=== PATIENT | female | born 1955 | race Caucasian/White ===

== ENCOUNTER → 2016-06-15 | Outpatient (CLI) | payer OTHER ==
--- NOTE | 2016-06-17 08:56 | MM ---
Reason for exam: screening (asymptomatic). Last mammogram was performed 1 year and 2 months ago. History: Patient is postmenopausal and is nulliparous. Took estrogen for 3 years beginning at age 51. Physical Findings: A clinical breast exam by your physician is recommended on an annual basis and results should be correlated with mammographic findings. MG Screening Mammo w CAD Bilateral CC and MLO view(s) were taken. Prior study comparison: April 15, 2015, bilateral MG screening mammo w CAD. July 07, 2013, [facility] DIGITAL LEFT BREAST MAMMOGRAM w/CAD. The breast tissue is heterogeneously dense. This may lower the sensitivity of mammography. There is chronic nodularity bilaterally. No significant changes when compared with prior studies. ASSESSMENT: Benign, BI-RAD 2 RECOMMENDATION: Routine screening mammogram of both breasts in 1 year.
== END ==
LOC: RADMAMWWP 16:22
PROVIDERS: ATTEND Family Medicine
DX: Z12.31 Encounter for screening mammogram for malignant neoplasm of breast (principal)

== ENCOUNTER → 2017-04-16 | Outpatient (CLI) | payer OTHER ==
[~2017-04-16] MED LIST: SODIUM CHLORIDE 0.9% 500 ML in EMPTY BAG 1 BAG IV PRN; ZOLEDRONIC ACID 5 MG in SODIUM CHLORIDE 0.9% 100 ML IV ONE
[2017-04-16 12:53] VITALS: BP 136/63; PULSE 68; RESP 16; TEMP 98.1
== END | disposition home or self-care (01) ==
LOC: PROCWHC3 12:35
PROVIDERS: ATTEND Physician Assistant Medical
DX: M81.0 Age-related osteoporosis without current pathological fracture (principal)
CPT/HCPCS: 96365; J3489

== ENCOUNTER 2017-06-22 10:00 | Observation (INO) | payer OTHER ==
[2017-06-22] MEDS ORDERED: NITROGLYCERIN OINT 1 INCH/GM PACKET TOPICAL STA (10:28)
[2017-06-22] MEDS ORDERED: ASPIRIN 81 MG PO STA (10:28)
--- NOTE | 2017-06-22 10:30 | ED ---
General Adult HPI - General Chief complaint: Chest Pain Stated complaint: Chest pain Time Seen by Provider: 06/22/17 10:20 Source: patient, RN notes reviewed Mode of arrival: wheelchair Limitations: no limitations - History of Present Illness Initial comments: Patient is a pleasant 61-year-old female presenting to the emergency Department with chest discomfort. Onset was prior to arrival. Patient was at rest. Discomfort felt somewhat sharp. There was radiation to the left shoulder. No associated dyspnea, nausea, or diaphoresis. Patient is near symptom-free at this time. Symptoms did improve with aspirin. No history of similar symptoms previously. - Related Data Home Medications Medication Instructions Recorded Confirmed Aspirin 81 mg PO DAILY 07/11/14 06/22/17 Calcium Carbonate/Vitamin D3 1 tab PO DAILY 03/11/15 06/22/17 [Calcium 600 + Vit D Tablet] Lutein 40 mg PO DAILY 03/11/15 06/22/17 Cholecalciferol (Vitamin D3) 2,000 unit PO DAILY 06/22/17 06/22/17 [Vitamin D3] Hydrochlorothiazide [Hydrodiuril] 25 mg PO DAILY 06/22/17 06/22/17 Ubidecarenone [Co Q-10] 100 mg PO DAILY 06/22/17 06/22/17 Vits A,C,E/Lutein/Minerals 1 tab PO DAILY 06/22/17 06/22/17 [Ocuvite with Lutein Tablet] Allergies Allergy/AdvReac Type Severity Reaction Status Date / Time hydromorphone HCl Allergy Itching Verified 06/22/17 10:46 [From Dilaudid] codeine AdvReac Nausea Verified 06/22/17 10:46 Review of Systems ROS Statement: Those systems with pertinent positive or pertinent negative responses have been documented in the HPI. ROS Other: All systems not noted in ROS Statement are negative. Constitutional: Denies: fever Eyes: Denies: eye pain ENT: Denies: ear pain Respiratory: Denies: cough, dyspnea Cardiovascular: Reports: chest pain Endocrine: Denies: fatigue Gastrointestinal: Denies: abdominal pain Genitourinary: Denies: dysuria Musculoskeletal: Denies: back pain Skin: Denies: rash Neurological: Denies: weakness Past Medical History Past Medical History: Hyperlipidemia Additional Past Medical History / Comment(s): PAST HX IDIOPATHIC NODULAR PANNICULITIS-RESOLVED NOW History of Any Multi-Drug Resistant Organisms: None Reported Additional Past Surgical History / Comment(s): SINUS SURG. COLONOSCOPY Past Anesthesia/Blood Transfusion Reactions: No Reported Reaction Past Psychological History: No Psychological Hx Reported Smoking Status: Former smoker Past Alcohol Use History: Occasional Past Drug Use History: None Reported - Past Family History Mother Family Medical History: No Reported History General Exam Limitations: no limitations General appearance: alert, in no apparent distress Head exam: Present: atraumatic Eye exam: Present: normal appearance, PERRL ENT exam: Present: normal oropharynx Neck exam: Present: normal inspection Respiratory exam: Present: normal lung sounds bilaterally. Absent: chest wall tenderness Cardiovascular Exam: Present: regular rate, normal rhythm Expanded Peripheral pulses: 2+: Radial (R), Radial (L), Dorsalis Pedis (R), Dorsalis Pedis (L) GI/Abdominal exam: Present: soft. Absent: distended, tenderness Extremities exam: Present: normal inspection. Absent: pedal edema, calf tenderness Neurological exam: Present: alert Psychiatric exam: Present: normal affect, normal mood Skin exam: Present: normal color Course Vital Signs 06/22/17 06/22/17 10:03 10:13 Temperature 98.4 F Pulse Rate 79 Pulse Rate [ 80 Apical] Respiratory 18 Rate Blood Pressure 149/85 O2 Sat by Pulse 100 Oximetry EKG Findings - EKG Comments: EKG Findings:: Normal sinus rhythm 77. NE 142. QRS 82. QT 382. QTC 432. Normal axis. Normal QRS. No acute ST change. Medical Decision Making - Medical Decision Making Patient reevaluated and updated. Dr. Fowler has been paged for admission for Dr. Lee. - Lab Data Result diagrams: 06/22/17 10:13 06/22/17 10:13 Lab Results 06/22/17 06/22/17 06/22/17 Range/Units 10:13 10:13 10:13 WBC 3.5 L (3.8-10.6) k/uL RBC 4.54 (3.80-5.40) m/uL Hgb 14.3 (11.4-16.0) gm/dL Hct 42.7 (34.0-46.0) % MCV 94.1 (80.0-100.0) fL MCH 31.5 (25.0-35.0) pg MCHC 33.5 (31.0-37.0) g/dL RDW 11.8 (11.5-15.5) % Plt Count 176 (150-450) k/uL Neutrophils % 44 % Lymphocytes % 42 % Monocytes % 7 % Eosinophils % 2 % Basophils % 1 % Neutrophils # 1.5 (1.3-7.7) k/uL Lymphocytes # 1.5 (1.0-4.8) k/uL Monocytes # 0.3 (0-1.0) k/uL Eosinophils # 0.1 (0-0.7) k/uL Basophils # 0.0 (0-0.2) k/uL PT (9.0-12.0) sec INR (<1.2) APTT (22.0-30.0) sec Sodium 141 (137-145) mmol/L Potassium 4.2 (3.5-5.1) mmol/L Chloride 102 (98-107) mmol/L Carbon Dioxide 31 H (22-30) mmol/L Anion Gap 8 mmol/L BUN 25 H (7-17) mg/dL Creatinine 0.80 (0.52-1.04) mg/dL Est GFR (MDRD) Af Amer >60 (>60 ml/min/1.73 sqM) Est GFR (MDRD) Non-Af >60 (>60 ml/min/1.73 sqM) Glucose 82 (74-99) mg/dL Calcium 10.0 (8.4-10.2) mg/dL Magnesium 1.9 (1.6-2.3) mg/dL Total Bilirubin 0.4 (0.2-1.3) mg/dL AST 41 H (14-36) U/L ALT 77 H (9-52) U/L Alkaline Phosphatase 58 (38-126) U/L Total Creatine Kinase 50 (30-135) U/L CK-MB (CK-2) 0.4 (0.0-2.4) ng/mL CK-MB (CK-2) Rel Index 0.8 Troponin I <0.012 (0.000-0.034) ng/mL Total Protein 6.9 (6.3-8.2) g/dL Albumin 4.4 (3.5-5.0) g/dL 06/22/17 Range/Units 10:13 WBC (3.8-10.6) k/uL RBC (3.80-5.40) m/uL Hgb (11.4-16.0) gm/dL Hct (34.0-46.0) % MCV (80.0-100.0) fL MCH (25.0-35.0) pg MCHC (31.0-37.0) g/dL RDW (11.5-15.5) % Plt Count (150-450) k/uL Neutrophils % % Lymphocytes % % Monocytes % % Eosinophils % % Basophils % % Neutrophils # (1.3-7.7) k/uL Lymphocytes # (1.0-4.8) k/uL Monocytes # (0-1.0) k/uL Eosinophils # (0-0.7) k/uL Basophils # (0-0.2) k/uL PT 9.9 (9.0-12.0) sec INR 1.0 (<1.2) APTT 27.7 (22.0-30.0) sec Sodium (137-145) mmol/L Potassium (3.5-5.1) mmol/L Chloride (98-107) mmol/L Carbon Dioxide (22-30) mmol/L Anion Gap mmol/L BUN (7-17) mg/dL Creatinine (0.52-1.04) mg/dL Est GFR (MDRD) Af Amer (>60 ml/min/1.73 sqM) Est GFR (MDRD) Non-Af (>60 ml/min/1.73 sqM) Glucose (74-99) mg/dL Calcium (8.4-10.2) mg/dL Magnesium (1.6-2.3) mg/dL Total Bilirubin (0.2-1.3) mg/dL AST (14-36) U/L ALT (9-52) U/L Alkaline Phosphatase (38-126) U/L Total Creatine Kinase (30-135) U/L CK-MB (CK-2) (0.0-2.4) ng/mL CK-MB (CK-2) Rel Index Troponin I (0.000-0.034) ng/mL Total Protein (6.3-8.2) g/dL Albumin (3.5-5.0) g/dL - Radiology Data Interpreted by me: Chest x-ray shows no acute process Disposition Clinical Impression: Chest pain Disposition: ADMITTED IP TO THIS [facility] Referrals: Lenore Lee DO [Primary Care Provider] - 1-2 days Decision Time: 12:04
[2017-06-22 10:54] LABS: Basophils % (A) 1 %; Eosinophils # (A) 0.1 k/uL (0-0.7); Eosinophils % (A) 2 %; HCT 42.7 % (34.0-46.0); HGB 14.3 gm/dL (11.4-16.0); Lymphocytes # (A) 1.5 k/uL (1.0-4.8); Lymphocytes % (A) 42 %; MCH 31.5 pg (25.0-35.0); MCHC 33.5 g/dL (31.0-37.0); MCV 94.1 fL (80.0-100.0); Mean Platelet Volume 7.1; Monocytes # (A) 0.3 k/uL (0-1.0); Monocytes % (A) 7 %; Neutrophils # (A) 1.5 k/uL (1.3-7.7); Neutrophils % (A) 44 %; Platelet Count 176 k/uL (150-450); RBC 4.54 m/uL (3.80-5.40); RDW 11.8 % (11.5-15.5); WBC 3.5 k/uL (3.8-10.6)
[2017-06-22 11:07] LABS: Partial Thromboplastin Time 27.7 sec (22.0-30.0); Prothrombin Time 9.9 sec (9.0-12.0)
[2017-06-22 11:09] LABS: ALT 77 U/L (9-52); AST 41 U/L (14-36); Albumin 4.4 g/dL (3.5-5.0); Alkaline Phosphatase 58 U/L (38-126); Anion Gap 8 mmol/L; Blood Urea Nitrogen 25 mg/dL (7-17); Carbon Dioxide 31 mmol/L (22-30); Chloride 102 mmol/L (98-107); Glucose 82 mg/dL (74-99); Magnesium 1.9 mg/dL (1.6-2.3); Potassium 4.2 mmol/L (3.5-5.1); Sodium 141 mmol/L (137-145); Total Bilirubin 0.4 mg/dL (0.2-1.3); Total Protein 6.9 g/dL (6.3-8.2)
[2017-06-22 11:24] LABS: Creatine Kinase 50 U/L (30-135)
[2017-06-22 11:37] LABS: Creatine Kinase MB 0.4 ng/mL (0.0-2.4); Troponin I <0.012 ng/mL (0.000-0.034)
[2017-06-22] MEDS ORDERED: NITROGLYCERIN SL TABS 0.4 MG TAB SUBLINGUAL PRN (12:04)
--- NOTE | 2017-06-22 12:09 | XR ---
EXAMINATION TYPE: XR chest 2V DATE OF EXAM: 06/22/2017 COMPARISON: 03/11/2015 TECHNIQUE: PA and lateral views submitted. HISTORY: Chest pain FINDINGS: The lungs are clear and there is no pneumothorax, pleural effusion, or focal pneumonia. Patient sli ghtly rotated and there is arthropathy of the shoulders. No overt failure. Hypertrophic and degenerat yue change of the spine. IMPRESSION: 1. No acute process.
--- NOTE | 2017-06-22 14:32 | P.HPIM ---
History of Present Illness H&P Date: 06/22/17 Chief Complaint: Chest pain Mrs. Espino is a 61-year-old female, patient of [facility]. She has a known past medical history of hyperlipidemia, hypertension, osteoporosis and generalized anxiety disorder. And a prior history of smoking. Patient reports that she was sitting at her desk at work around 9:45 this morning she started having some left sided chest pain radiating into the left shoulder and into the back of the shoulder. Patient got up from her chair walked around and she also took an aspirin with no relief of her symptoms. Patient's symptoms lasted for about 45 minutes. She came into the emergency room for further evaluation and treatment. Last stress test was about 6 years ago. Patient reports that it was normal. She had EKG showing a normal sinus rhythm chest x- ray that was negative. First troponin was negative. Cardiology consulted. Patient was also found have elevated LFTs ALT of 77 AST of 41. She does take simvastatin at home. As well as Wednesday at the [employer] she did drink 6 beers. Simvastatin will be discontinued. A fasting lipid panel has been ordered. Patient denies any fever or chills or sweats. Denies any cough. Denies any nausea or vomiting. Denies any urinary symptoms. Denies any shortness of breath. Patient reports that she is chronically had loose stools since May. They are not watery. She did have some blood initially. And workup is being completed outpatient she is scheduled for colonoscopy on June 24. Patient also reports that she and her PCP had been weaning her off of the Effexor starting in January. And completely stopped taking the Effexor the beginning of May. She does report when she was in the hospital about 6 years ago at that time she had also been off of the Effexor and had chest pain like symptoms. Patient does have a family history of a father that heart attack age 50 Past Medical History Past Medical History: Eye Disorder, Hyperlipidemia, Hypertension Additional Past Medical History / Comment(s): PAST HX IDIOPATHIC NODULAR PANNICULITIS-RESOLVED NOW, pt takes hydrochlorithiazide for slight elevated blood pressure at times, beginning of bilateral macular degeneration, beginning of cataract L eye, osteoporosis with yearly reclast infusions. History of Any Multi-Drug Resistant Organisms: None Reported Additional Past Surgical History / Comment(s): SINUS SURG,. COLONOSCOPY Past Anesthesia/Blood Transfusion Reactions: No Reported Reaction Smoking Status: Former smoker - Past Family History Mother Family Medical History: No Reported History Additional Family Medical History / Comment(s): Mother had cardiac disease and arrhythmia. She lived to be 85yrs old. Father Additional Family Medical History / Comment(s): Father had cardiac disease. Medications and Allergies Home Medications Medication Instructions Recorded Confirmed Type Aspirin 81 mg PO DAILY 07/11/14 06/22/17 History Calcium Carbonate/Vitamin D3 1 tab PO DAILY 03/11/15 06/22/17 History [Calcium 600 + Vit D Tablet] Lutein 40 mg PO DAILY 03/11/15 06/22/17 History Cholecalciferol (Vitamin D3) 2,000 unit PO DAILY 06/22/17 06/22/17 History [Vitamin D3] Hydrochlorothiazide [Hydrodiuril] 25 mg PO DAILY 06/22/17 06/22/17 History Ubidecarenone [Co Q-10] 100 mg PO DAILY 06/22/17 06/22/17 History Vits A,C,E/Lutein/Minerals 1 tab PO DAILY 06/22/17 06/22/17 History [Ocuvite with Lutein Tablet] Allergies Allergy/AdvReac Type Severity Reaction Status Date / Time hydromorphone HCl Allergy Itching Verified 06/22/17 10:46 [From Dilaudid] codeine AdvReac Nausea Verified 06/22/17 10:46 Physical Exam Vitals: Vital Signs Temp Pulse Pulse Pulse Resp BP BP 06/22/17 12:59 80 72 18 06/22/17 12:36 98.0 F 72 18 146/67 06/22/17 12:19 98.0 F 65 18 125/75 06/22/17 12:07 69 19 125/78 06/22/17 10:13 80 06/22/17 10:03 98.4 F 79 18 149/85 Pulse Ox 06/22/17 12:59 06/22/17 12:36 98 06/22/17 12:19 97 06/22/17 12:07 97 06/22/17 10:13 06/22/17 10:03 100 Intake and Output 06/21/17 06/22/17 06/22/17 22:59 06:59 14:59 Other: Voiding Method Toilet Weight 65.5 kg Patient Weight 06/23/17 06:59 Weight 65.5 kg Results CBC & Chem 7: 06/22/17 10:13 06/22/17 10:13 Labs: Abnormal Lab Results - Last 24 Hours (Table) 06/22/17 06/22/17 Range/Units 10:13 10:13 WBC 3.5 L (3.8-10.6) k/uL Carbon Dioxide 31 H (22-30) mmol/L BUN 25 H (7-17) mg/dL AST 41 H (14-36) U/L ALT 77 H (9-52) U/L Thrombosis Risk Factor Assmnt - Choose All That Apply Any of the Below Risk Factors Present?: Yes Each Factor Represents 1 point: Obesity (BMI >25) Other Risk Factors: Yes Each Risk Factor Represents 2 Points: Age 61-74 years Other congenital or acquired thrombophilia - If yes, enter type in comment: No Thrombosis Risk Factor Assessment Total Risk Factor Score: 3 Thrombosis Risk Factor Assessment Level: Moderate Risk Assessment and Plan Assessment: 1. Chest pain: Cardiac workup in progress. EKG showed normal sinus rhythm. First troponin is negative. Cardiology consulted. Check fasting lipid panel. Continue aspirin 2. Elevated LFTs: Possibly medication related as well as patient did drink about 6 beers on Wednesday. She does not drink alcohol regularly. Statin will be discontinued. Repeat LFTs in a.m. Denies any abdominal pain. 3. Hyperlipidemia 4. Essential hypertension 5. Generalized anxiety disorder: Was recently tapered off of the Effexor in May DVT prophylaxis subcu heparin Time with Patient: Greater than 30 (Greater than 50% of the total time spent in counseling and coordination of care.I performed an examination of the patient and discussed their management with the physician Parts Room Associate. I have reviewed the Physician Parts Room Associate's notes and agree with the documented findings and plan of care)
--- NOTE | 2017-06-22 14:50 | P.CRDCN ---
History of Present Illness Consult date: 06/22/17 Consult reason: chest pain History of present illness: Mrs. Espino is a pleasant 61-year-old female past medical history significant for hypertension, dyslipidemia, anxiety and former tobacco use. 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 She states today while at work she was sitting at her desk doing some computer work when she started getting a sharp pain in the anterior chest wall up near her shoulder. The pain radiated into the left neck and shoulder. She also felt a heavy sensation down her left arm. She was mildly light-headed as well. She denies associated shortness of breath, palpitations, nausea, vomiting or diaphoresis. These symptoms lasted for approximately 45 minutes and seemed to resolve on their own. Nothing made the pain worse or better that she can recall. She did get up and walk to the bathroom initially thinking it was a gas sensation. The pain stayed the same with walking. She did chew aspirin at work with no immediate relief so decided to present to ED. EKG on arrival revealed sinus mechanism with no acute ST or T-wave abnormalities. Chest xray is negative for an acute cardiopulmonary process. Laboratory data reviewed, hgb 14.3, plt 176, potassium 4.2, magnesium 1.9, BUN/ Cr 25/0.8, cardiac enzymes negative x1. AST and ALT mildly elevated. Current cardiac medications include hydrochlorothiazide 25 mg daily and aspirin 81 mg daily. She also takes simvastatin but is unsure of the dose. Her will bring in her bottle for us to update. Extensive family history with both mother and father having early onset cardiac disease. Most recent echocardiogram 02/2015 reveals preserved LV function with EF 55-60% with mild TR. Most recent stress echocardiogram 02/2015 reveals no evidence of stress induced ischemia without achieving target heart rate. She has never undergone a cardiac catheterization. Review of Systems At the time of my exam: CONSTITUTIONAL: Denies fever. Denies chills. EYES: Denies blurred vision. Denies vision changes. Denies eye pain. EARS, NOSE, MOUTH & THROAT: Denies headache. Denies sore throat. Denies ear pain. CARDIOVASCULAR: Denies chest pain. Denies shortness of breath. Denies orthopnea. Denies PND. Denies palpitations. RESPIRATORY: Denies cough. GASTROINTESTINAL: Denies abdominal pain. Denies diarrhea. Denies constipation. Denies nausea. Denies vomiting. MUSCULOSKELETAL: Denies myalgias. INTEGUMENTARY: Denies pruitis. Denies rash. NEUROLOGIC: Denies numbness. Denies tingling. Denies weakness. PSYCHIATRIC: Denies anxiety. Denies depression. ENDOCRINE: Denies fatigue. Denies weight change. Denies polydipsia. Denies polyurina. GENITOURINARY: Denies burning, hematuria or urgency with micturation. HEMATOLOGIC: Denies history of anemia. Denies bleeding. Past Medical History Past Medical History: Eye Disorder, Hyperlipidemia, Hypertension Additional Past Medical History / Comment(s): PAST HX IDIOPATHIC NODULAR PANNICULITIS-RESOLVED NOW, pt takes hydrochlorithiazide for slight elevated blood pressure at times, beginning of bilateral macular degeneration, beginning of cataract L eye, osteoporosis with yearly reclast infusions. History of Any Multi-Drug Resistant Organisms: None Reported Additional Past Surgical History / Comment(s): SINUS SURG,. COLONOSCOPY Past Anesthesia/Blood Transfusion Reactions: No Reported Reaction Smoking Status: Former smoker - Past Family History Mother Family Medical History: No Reported History Additional Family Medical History / Comment(s): Mother had cardiac disease and arrhythmia. She lived to be 85yrs old. Father Additional Family Medical History / Comment(s): Father had cardiac disease. Medications and Allergies Home Medications Medication Instructions Recorded Confirmed Type Aspirin 81 mg PO DAILY 07/11/14 06/22/17 History Calcium Carbonate/Vitamin D3 1 tab PO DAILY 03/11/15 06/22/17 History [Calcium 600 + Vit D Tablet] Lutein 40 mg PO DAILY 03/11/15 06/22/17 History Cholecalciferol (Vitamin D3) 2,000 unit PO DAILY 06/22/17 06/22/17 History [Vitamin D3] Hydrochlorothiazide [Hydrodiuril] 25 mg PO DAILY 06/22/17 06/22/17 History Ubidecarenone [Co Q-10] 100 mg PO DAILY 06/22/17 06/22/17 History Vits A,C,E/Lutein/Minerals 1 tab PO DAILY 06/22/17 06/22/17 History [Ocuvite with Lutein Tablet] Allergies Allergy/AdvReac Type Severity Reaction Status Date / Time hydromorphone HCl Allergy Itching Verified 06/22/17 10:46 [From Dilaudid] codeine AdvReac Nausea Verified 06/22/17 10:46 Physical Exam Vitals: Vital Signs Temp Pulse Pulse Pulse Resp BP BP 06/22/17 12:59 80 72 18 06/22/17 12:36 98.0 F 72 18 146/67 06/22/17 12:19 98.0 F 65 18 125/75 06/22/17 12:07 69 19 125/78 06/22/17 10:13 80 06/22/17 10:03 98.4 F 79 18 149/85 Pulse Ox 06/22/17 12:59 06/22/17 12:36 98 06/22/17 12:19 97 06/22/17 12:07 97 06/22/17 10:13 06/22/17 10:03 100 Intake and Output 06/21/17 06/22/17 06/22/17 22:59 06:59 14:59 Other: Voiding Method Toilet Weight 65.5 kg Patient Weight 06/23/17 06:59 Weight 65.5 kg Blood pressure 146/67 heart rate 72 afebrile GENERAL: This is a 61-year-old female in no apparent distress at the time of my examination. HEENT: Head is atraumatic, normocephalic. Pupils are equal, round. Sclerae anicteric. Conjunctivae are clear. Mucous membranes of the mouth are moist. Neck is supple. There is no jugular venous distention. No carotid bruit is heard. LUNGS: Clear to auscultation no wheezes, rales or rhonchi. No chest wall tenderness is noted on palpation or with deep breathing. HEART: Regular rate and rhythm without murmurs, rubs or gallops. S1 and S2 heard. ABDOMEN: Soft, nontender. Bowel sounds are heard. No organomegaly noted. EXTREMITIES: No evidence of peripheral edema and no calf tenderness noted. VASCULAR: Radial and dorsalis pedis pulses palpated, no evidence of clubbing. NEUROLOGIC: Patient is awake, alert and oriented x3. Results 06/22/17 10:13 06/22/17 10:13 Cardiac Enzymes 06/22/17 06/22/17 Range/Units 10:13 10:13 AST 41 H (14-36) U/L CK-MB (CK-2) 0.4 (0.0-2.4) ng/mL Troponin I <0.012 (0.000-0.034) ng/mL Coagulation 06/22/17 Range/Units 10:13 PT 9.9 (9.0-12.0) sec APTT 27.7 (22.0-30.0) sec CBC 06/22/17 Range/Units 10:13 WBC 3.5 L (3.8-10.6) k/uL RBC 4.54 (3.80-5.40) m/uL Hgb 14.3 (11.4-16.0) gm/dL Hct 42.7 (34.0-46.0) % Plt Count 176 (150-450) k/uL Comprehensive Metabolic Panel 06/22/17 Range/Units 10:13 Sodium 141 (137-145) mmol/L Potassium 4.2 (3.5-5.1) mmol/L Chloride 102 (98-107) mmol/L Carbon Dioxide 31 H (22-30) mmol/L BUN 25 H (7-17) mg/dL Creatinine 0.80 (0.52-1.04) mg/dL Glucose 82 (74-99) mg/dL Calcium 10.0 (8.4-10.2) mg/dL AST 41 H (14-36) U/L ALT 77 H (9-52) U/L Alkaline Phosphatase 58 (38-126) U/L Total Protein 6.9 (6.3-8.2) g/dL Albumin 4.4 (3.5-5.0) g/dL Current Medications Generic Name Dose Route Start Last Admin Trade Name [email or web address] PRN Reason Stop Dose Admin Aspirin 325 mg 06/23/17 09:00 Aspirin PO DAILY [facility] Calcium Carbonate 1 each 06/23/17 09:00 Oscal 500+D PO DAILY [facility] Cholecalciferol 2,000 unit 06/23/17 09:00 Vitamin D3 PO DAILY [facility] Hydrochlorothiazide 25 mg 06/23/17 09:00 Hydrodiuril PO DAILY [facility] Multivitamins/Minerals 1 each 06/23/17 09:00 Ivite PO DAILY [facility] Nitroglycerin 1 inch 06/22/17 18:00 Nitro-Bid Oint TOPICAL Q6HR [facility] Nitroglycerin 0.4 mg 06/22/17 12:04 Nitrostat SUBLINGUAL Q5M PRN Chest Pain Lutein 40mg 40 mg 06/23/17 09:00 PO DAILY [facility] Non-Formulary Medication 100 mg 06/23/17 09:00 Ubidecarenone [Co Q-10] PO DAILY [facility] Intake and Output 06/21/17 06/22/17 06/22/17 22:59 06:59 14:59 Other: Voiding Method Toilet Weight 65.5 kg Patient Weight 06/23/17 06:59 Weight 65.5 kg 06/22/17 10:13 06/22/17 10:13 Assessment and Plan Assessment: ASSESSMENT 1. Chest pain, atypical with associated dizziness and radiation to neck and arm. Negative cardiac enzymes x1 with no EKG evidence of ischemia 2. Hypertension 3. Dyslipidemia 4. Family history of cardiac disease with both parents 5. Elevated liver function tests. PLAN Continue to obtain serial cardiac enzymes and repeat EKG in the morning. Obtain 2D echocardiogram and doppler study to assess cardiac structure and function. Resume aspirin and hydrochlorothiazide. Hold simvastatin for now, LFT's recheck in am per primary. NPO after midnight for possible stress test in the morning if cardiac enzymes are negative. Thank you kindly for this consultation, further recommendations will be based upon clinical course. Nurse Practitioner note has been reviewed, I agree with a documented findings and plan of care. Patient was seen and examined.
[2017-06-22 16:34] LABS: Creatine Kinase 46 U/L (30-135)
[2017-06-22 16:47] LABS: Creatine Kinase MB 0.3 ng/mL (0.0-2.4); Troponin I <0.012 ng/mL (0.000-0.034)
[2017-06-22] MEDS ORDERED: NITROGLYCERIN OINT 1 INCH/GM PACKET TOPICAL SCH (18:00)
[2017-06-22] MEDS: HEPARIN SODIUM,PORCINE 5,000 UNIT/ML 1 ML VIAL SQ SCH (22:07)
[2017-06-22 22:37] LABS: Creatine Kinase 44 U/L (30-135)
[2017-06-22 22:50] LABS: Creatine Kinase MB 0.3 ng/mL (0.0-2.4); Troponin I <0.012 ng/mL (0.000-0.034)
[2017-06-23 06:41] VITALS: RESP 18
[2017-06-23 07:51] LABS: ALT 68 U/L (9-52); AST 33 U/L (14-36); Alkaline Phosphatase 54 U/L (38-126); Anion Gap 7 mmol/L; Blood Urea Nitrogen 24 mg/dL (7-17); Calcium 9.4 mg/dL (8.4-10.2); Carbon Dioxide 30 mmol/L (22-30); Chloride 105 mmol/L (98-107); Cholesterol 167 mg/dL (<200); Glucose 104 mg/dL (74-99); HDL Cholesterol 60 mg/dL (40-60); LDL Cholesterol,Calculated 69 mg/dL (0-99); Potassium 4.4 mmol/L (3.5-5.1); Sodium 142 mmol/L (137-145); Total Bilirubin 0.4 mg/dL (0.2-1.3); Total Protein 6.4 g/dL (6.3-8.2); Triglycerides 190 mg/dL (<150)
[2017-06-23 08:08] LABS: Basophils % (A) 1 %; Eosinophils # (A) 0.1 k/uL (0-0.7); Eosinophils % (A) 4 %; HCT 41.6 % (34.0-46.0); Lymphocytes # (A) 1.3 k/uL (1.0-4.8); Lymphocytes % (A) 47 %; MCH 31.7 pg (25.0-35.0); MCHC 33.6 g/dL (31.0-37.0); MCV 94.4 fL (80.0-100.0); Mean Platelet Volume 7.6; Monocytes # (A) 0.2 k/uL (0-1.0); Monocytes % (A) 6 %; Neutrophils # (A) 1.1 k/uL (1.3-7.7); Neutrophils % (A) 38 %; Platelet Count 155 k/uL (150-450); RDW 11.8 % (11.5-15.5); WBC 2.8 k/uL (3.8-10.6)
[2017-06-23] MEDS ORDERED: ASPIRIN 325 MG TAB PO SCH (09:00)
[2017-06-23] MEDS ORDERED: HYDROCHLOROTHIAZIDE 25 MG TAB PO SCH (09:00)
[2017-06-23] MEDS ORDERED: LUTEIN 40 MG PO SCH (09:00)
[2017-06-23] MEDS ORDERED: VIT A,C & E-LUTEIN-MINERALS 1 EACH TAB PO SCH (09:00)
[2017-06-23] MEDS ORDERED: ASPIRIN 81 MG PO SCH (09:00)
[2017-06-23] MEDS ORDERED: CO Q-10 100MG PO SCH (09:00)
[2017-06-23] MEDS ORDERED: CHOLECALCIFEROL 1,000 UNIT TAB PO SCH (09:00)
[2017-06-23] MEDS ORDERED: CALCIUM CARB-VIT D 500MG-200UN 1 EACH TAB PO SCH (09:00)
[2017-06-23] MEDS: HEPARIN SODIUM,PORCINE 5,000 UNIT/ML 1 ML VIAL SQ SCH (12:27)
--- NOTE | 2017-06-23 13:04 | P.PN ---
Subjective Progress Note Date: 06/23/17 Mrs. Espino is seen and examined this morning resting comfortably in bed. She has had no further symptoms suggestive of angina. She denies chest pain, shortness of breath, dizziness, palpitations, diaphoresis, nausea or vomiting. Telemetry tracings have been unremarkable. Cardiac enzymes are negative x3. She is stable to proceed with stress echocardiogram as ordered. Objective - Vital Signs Vital signs: Vital Signs Temp 97.8 F 06/23/17 11:55 Pulse 79 06/23/17 11:55 Resp 18 06/23/17 11:55 BP 112/56 06/23/17 11:55 Pulse Ox 96 06/23/17 11:55 Intake & Output 06/22/17 06/23/17 06/23/17 18:59 06:59 18:59 Intake Total 720 Balance 720 Weight 65.5 kg 65.5 kg 65.317 kg Intake: Oral 720 Other: Voiding Method Toilet Toilet Toilet # Voids 1 - Exam Blood pressure 113/61 heart rate 67 afebrile GENERAL: Well-appearing, well-nourished and in no acute distress. NECK: Supple without JVD or thyromegaly. LUNGS: Breath sounds clear to auscultation bilaterally. Respiration equal and unlabored. No wheezes, rales or rhonchi. HEART: Regular rate and rhythm without murmurs, rubs or gallops. S1 and S2 heard. EXTREMITIES: Normal range of motion, no edema. No clubbing or cyanosis. Peripheral pulses intact and strong. - Labs CBC & Chem 7: 06/23/17 06:59 06/23/17 06:59 Labs: Abnormal Lab Results - Last 24 Hours (Table) 06/23/17 06/23/17 Range/Units 06:59 06:59 WBC 2.8 L (3.8-10.6) k/uL Neutrophils # 1.1 L (1.3-7.7) k/uL BUN 24 H (7-17) mg/dL Glucose 104 H (74-99) mg/dL ALT 68 H (9-52) U/L Triglycerides 190 H (<150) mg/dL Assessment and Plan Assessment: ASSESSMENT 1. Chest pain, atypical with associated dizziness and radiation to neck and arm. Negative cardiac enzymes x3 with no EKG evidence of ischemia 2. Hypertension 3. Dyslipidemia 4. Family history of cardiac disease with both parents 5. Elevated liver function tests. PLAN Proceed with stress echocardiogram to evaluate for stress induced cardiac ishcemia. If this is normal she is stable from cardiac perspective. Follow up with Dr. Mishra in 2-3 weeks. Nurse Practitioner note has been reviewed, I agree with a documented findings and plan of care. Patient was seen and examined.
--- NOTE | 2017-06-23 13:19 | ECHOF ---
Referral Reason:chest pain MEASUREMENTS -------- HEIGHT: 152.4 cm WEIGHT: 65.3 kg BP: 146/67 RVIDd: 3.4 cm (< 3.3) IVSd: 1.0 cm (0.6 - 1.1) LVIDd: 4.8 cm (3.9 - 5.3) LVPWd: 1.3 cm (0.6 - 1.1) IVSs: 1.3 cm LVIDs: 2.6 cm LVPWs: 1.3 cm LAESV Index (A-L): 21.04 ml/m Ao Diam: 2.7 cm (2.0 - 3.7) AV Cusp: 1.8 cm (1.5 - 2.6) LA Diam: 3.6 cm (2.7 - 3.8) MV E Dejon: 0.54 m/s MV DecT: 160 ms MV A Dejon: 0.64 m/s MV E/A Ratio: 0.83 RAP: 5.00 mmHg RVSP: 22.86 mmHg MV EF SLOPE: 68.48 mm/s (70 - 150) MV EXCURSION: 1.27 cm (> 18.000) FINDINGS -------- Sinus rhythm. This was a technically adequate study. The left ventricular size is normal. There is borderline concentric left ventricular hypertrophy. Overall left ventricular systolic function is normal with, an EF between 55 - 60 %. The right ventricle is normal in size and function. Normal LA size by volume 22+/-6 ml/m2. The right atrium is normal in size. The aortic valve is trileaflet and appears structurally normal. There is mild aortic regurgitation. The mitral valve is normal. Mild mitral regurgitation is present. Trace tricuspid regurgitation present. Right ventricular systolic pressure is normal at < 35 mmHg. There is no evidence of pulmonary hypertension. There is no pulmonic regurgitation present. The aortic root is borderline dilated. Normal inferior vena cava with normal inspiratory collapse consistent with estimated right atrial pre ssure of 5 mmHg. There is no pericardial effusion. CONCLUSIONS -------- 1. Sinus rhythm. 2. This was a technically adequate study. 3. The left ventricular size is normal. 4. There is borderline concentric left ventricular hypertrophy. 5. Overall left ventricular systolic function is normal with, an EF between 55 - 60 %. 6. Normal LA size by volume 22+/-6 ml/m2. 7. The aortic valve is trileaflet and appears structurally normal. 8. There is mild aortic regurgitation. 9. Mild mitral regurgitation is present. 10. Trace tricuspid regurgitation present. 11. Right ventricular systolic pressure is normal at < 35 mmHg. 12. There is no pulmonic regurgitation present. 13. The aortic root is borderline dilated. 14. There is no pericardial effusion. SHOE LINING FITTER: Castillo Fields RDCS
--- NOTE | 2017-06-23 14:12 | ECHOS ---
STRESS ECHOCARDIOGRAM INDICATIONS: Chest pain. BASELINE HEART RATE: 69 BASELINE BLOOD PRESSURE: 88/61 MAXIMUM HEART RATE: 140 MAXIMUM BLOOD PRESSURE: 122/60 85% MPHR: 134 100% MPHR: 158 METS: 12.1 MAXIMUM STAGE REACHED: III TOTAL EXERCISE TIME: 11:01 CLINICAL INFORMATION: Baseline rhythm is sinus mechanism, rate of 69, normal axis, intervals, normal electrocardiogram. Baseline blood pressure 88/61 mmHg. Patient exercised according to Sincere protocol for 11 minute 1 second reaching a peak heart rate of 140 beats per minute, which is equal to 88% maximum predicted heart cut. Peak blood pressure 122/60 mmHg. Stress was terminated due to fatigue. There was no chest pains. Electrocardiograph monitoring revealed no evidence of diagnostic ischemic ST deviation. FINDING: Baseline echocardiogram revealed normal wall thickening and motion. At peak exercise, there was normal wall motion and augmentation with no hypokinesis or dyskinesis. CONCLUSION: 1. Good exercise tolerance with normal stress electrocardiogram. 2. Normal stress echocardiogram with no evidence of stress-induced ischemia. MMODL / IJN: [id number] /
[2017-06-23 16:13] VITALS: BP 109/67; PULSE 75; TEMP 98
--- NOTE | 2017-06-23 17:08 | P.DS ---
Providers Date of admission: 06/22/17 12:04 Expected date of discharge: 06/23/17 Attending physician: Marlon Fowler Consults: 06/22/17 12:04 Consult Physician Urgent Consulting Provider: Jt Iyer Consult Reason/Comments: cp Do you want consulting provider notified?: Yes Primary care physician: [facility] Course: Diagnoses on discharge: 1. Chest pain: Cardiac workup including stress echo negative, patient evaluated by cardiology and cleared for discharge 2. Elevated LFTs: Possibly medication related as well as patient did drink about 6 beers on Wednesday. She does not drink alcohol regularly. Statin will be discontinued. Repeat LFTs in a.m. Denies any abdominal pain. 3. Hyperlipidemia 4. Essential hypertension 5. Generalized anxiety disorder: Was recently tapered off of the Effexor in May Hospital course: Mrs. Espino is a 61-year-old female, patient of [facility]. She has a known past medical history of hyperlipidemia, hypertension, osteoporosis and generalized anxiety disorder. And a prior history of smoking. Patient reports that she was sitting at her desk at work around 9:45 this morning she started having some left sided chest pain radiating into the left shoulder and into the back of the shoulder. Patient got up from her chair walked around and she also took an aspirin with no relief of her symptoms. Patient's symptoms lasted for about 45 minutes. She came into the emergency room for further evaluation and treatment. Last stress test was about 6 years ago. Patient reports that it was normal. She had EKG showing a normal sinus rhythm chest x- ray that was negative. First troponin was negative. Cardiology consulted. Patient was also found have elevated LFTs ALT of 77 AST of 41. She does take simvastatin at home. As well as Wednesday at the [email or web address] she did drink 6 beers. Simvastatin will be discontinued. A fasting lipid panel has been ordered. Patient denies any fever or chills or sweats. Denies any cough. Denies any nausea or vomiting. Denies any urinary symptoms. Denies any shortness of breath. Patient reports that she is chronically had loose stools since May. They are not watery. She did have some blood initially. And workup is being completed outpatient she is scheduled for colonoscopy on June 24. Patient also reports that she and her PCP had been weaning her off of the Effexor starting in January. And completely stopped taking the Effexor the beginning of May. She does report when she was in the hospital about 6 years ago at that time she had also been off of the Effexor and had chest pain like symptoms. Patient does have a family history of a father that heart attack age 50 Plan - Discharge Summary Discharge Rx Participant: No New Discharge Prescriptions: Continue Aspirin 81 mg PO DAILY Lutein 40 mg PO DAILY Calcium Carbonate/Vitamin D3 [Calcium 600-Vit D3 400 Tablet] 1 tab PO DAILY Cholecalciferol (Vitamin D3) [Vitamin D3] 2,000 unit PO DAILY Vits A,C,E/Lutein/Minerals [Ocuvite with Lutein Tablet] 1 tab PO DAILY Hydrochlorothiazide [Hydrodiuril] 25 mg PO DAILY Ubidecarenone [Co Q-10] 100 mg PO DAILY Discharge Medication List Aspirin 81 mg PO DAILY 07/11/14 [History] Calcium Carbonate/Vitamin D3 [Calcium 600-Vit D3 400 Tablet] 1 tab PO DAILY [History] Lutein 40 mg PO DAILY 03/11/15 [History] Cholecalciferol (Vitamin D3) [Vitamin D3] 2,000 unit PO DAILY 06/22/17 [History] Hydrochlorothiazide [Hydrodiuril] 25 mg PO DAILY 06/22/17 [History] Ubidecarenone [Co Q-10] 100 mg PO DAILY 06/22/17 [History] Vits A,C,E/Lutein/Minerals [Ocuvite with Lutein Tablet] 1 tab PO DAILY 06/22/17 [History] Follow up Appointment(s)/Referral(s): Lenore Lee DO [Primary Care Provider] - 1-2 days
== END 2017-06-23 17:51 | disposition home or self-care (01) ==
LOC: EC 10:00 → 3OBS 12:04
PROVIDERS: ADMIT Internal Medicine; ATTEND Internal Medicine
DX: R07.89 Other chest pain (principal); R94.5 Abnormal results of liver function studies; I10 Essential (primary) hypertension; E78.5 Hyperlipidemia, unspecified; Z82.49 Family history of ischemic heart disease and other diseases of the circulatory system; R42 Dizziness and giddiness; M81.0 Age-related osteoporosis without current pathological fracture; F41.1 Generalized anxiety disorder; H26.9 Unspecified cataract; H35.30 Unspecified macular degeneration; E66.9 Obesity, unspecified; Z68.25 Body mass index [BMI] 25.0-25.9, adult; Z79.82 Long term (current) use of aspirin; Z79.899 Other long term (current) drug therapy; Z88.5 Allergy status to narcotic agent; Z87.891 Personal history of nicotine dependence
CPT/HCPCS: 99285 ×2; 96372; 36415; 93005; 93350; 93017; 93306; 80061; 80053 ×2; 82550; 82553; 83735; 84484; 85025 ×2; 85610; 85730; 71046; G0378 ×2; J1644; Q9950

== ENCOUNTER 2017-07-16 10:55 | Day surgery (SDC) | payer OTHER ==
[2017-07-13 14:24] VITALS: BMI 28.1
[~2017-07-16 10:55] MED LIST changes: +LACTATED RINGERS 1,000 ML IV SCH; +LIDOCAINE 1% 20 ML VIAL (10MG/ML) FOR IV START INTRADERMA PRN; -SODIUM CHLORIDE 0.9% 500 ML in EMPTY BAG 1 BAG IV PRN; -ZOLEDRONIC ACID 5 MG in SODIUM CHLORIDE 0.9% 100 ML IV ONE
[2017-07-16 11:15] VITALS: RESP 16; TEMP 97.5
[2017-07-16 11:23] LABS: Glucose,Whole Blood 105 mg/dL (75-99)
[2017-07-16] MEDS ORDERED: PROPOFOL 10 MG/ML 20 ML VIAL IV ONE (12:13)
[2017-07-16] MEDS ORDERED: HYDROmorphone (PF) 1 MG/ML ONE (12:13)
[2017-07-16] MEDS ORDERED: LIDOCAINE 1% INJ 10MG/ML (20 ML MDV) ONE (12:13)
--- NOTE | 2017-07-16 12:22 | P.GSHP ---
History of Present Illness H&P Date: 07/16/17 Chief Complaint: Abdominal pain, diarrhea This a 5-year-old female with epigastric abdominal pain and diarrhea. Patient presents today for EGD and colonoscopy. Past Medical History Past Medical History: Eye Disorder, Hyperlipidemia, Hypertension Additional Past Medical History / Comment(s): PAST HX IDIOPATHIC NODULAR PANNICULITIS-RESOLVED NOW, pt takes hydrochlorithiazide for slight elevated blood pressure at times, beginning of bilateral macular degeneration, beginning of cataract L eye, osteoporosis with yearly reclast infusions. HYPOGLYCEMIC History of Any Multi-Drug Resistant Organisms: None Reported Additional Past Surgical History / Comment(s): SINUS SURG,. COLONOSCOPY Past Anesthesia/Blood Transfusion Reactions: No Reported Reaction Smoking Status: Former smoker - Past Family History Mother Family Medical History: No Reported History Additional Family Medical History / Comment(s): Mother had cardiac disease and arrhythmia. She lived to be 85yrs old. Father Additional Family Medical History / Comment(s): Father had cardiac disease. Medications and Allergies Home Medications Medication Instructions Recorded Confirmed Type Aspirin 81 mg PO DAILY 07/11/14 07/16/17 History Calcium Carbonate/Vitamin D3 1 tab PO DAILY 03/11/15 07/16/17 History [Calcium 600-Vit D3 400 Tablet] Lutein 40 mg PO DAILY 03/11/15 07/16/17 History Cholecalciferol (Vitamin D3) 2,000 unit PO DAILY 06/22/17 07/16/17 History [Vitamin D3] Hydrochlorothiazide [Hydrodiuril] 25 mg PO DAILY 06/22/17 07/16/17 History Ubidecarenone [Co Q-10] 100 mg PO DAILY 06/22/17 07/16/17 History Vits A,C,E/Lutein/Minerals 1 tab PO DAILY 06/22/17 07/16/17 History [Ocuvite with Lutein Tablet] Simvastatin [Zocor] 10 mg PO HS 07/13/17 07/16/17 History Allergies Allergy/AdvReac Type Severity Reaction Status Date / Time hydromorphone HCl Allergy Itching Verified 07/16/17 11:07 [From Dilaudid] codeine AdvReac Nausea Verified 07/16/17 11:07 Surgical - Exam Vital Signs Temp Pulse Resp BP Pulse Ox 97.5 F L 75 16 107/68 96 07/16/17 11:14 07/16/17 11:14 07/16/17 11:14 07/16/17 11:14 07/16/17 11:14 - General well developed, no distress - Eyes PERRL - ENT normal pinna - Neck no masses - Respiratory normal expansion - Cardiovascular Rhythm: regular - Abdomen Abdomen: soft, non tender Results - Labs Abnormal Lab Results - Last 24 Hours (Table) 07/16/17 Range/Units 11:22 POC Glucose (mg/dL) 105 H (75-99) mg/dL Assessment and Plan Assessment: Epigastric dull pain. We'll perform EGD. Diarrhea. We'll perform colonoscopy to evaluate for possible colitis.
--- NOTE | 2017-07-16 12:43 | P.OP ---
Date of Procedure: 07/16/17 Preoperative Diagnosis: Epigastric dull pain Diarrhea Postoperative Diagnosis: Diverticulosis Sigmoid colon polyp Mild antral gastritis Procedure(s) Performed: EGD Colonoscopy Anesthesia: MAC Surgeon: Rivera Moeller Pathology: other (Antrum, sigmoid colon polyp) Condition: stable Disposition: PACU Description of Procedure: The patient's placed on the endoscopy table lateral position. She received IV sedation. Digital rectal exam was performed which revealed no abnormalities. The flexible colonoscope was then placed patient anus passed throughout the entire colon. The ileocecal valve was visualized. The cecum, ascending and transverse colon appeared normal. Scope was then brought back the descending and; there is mild diverticular changes. In the; results was a small hyperplastic polyp and this removed with the cold forcep. Scope was withdrawn the rectum this appeared normal. Scope was withdrawn for patient. Next the gastroscope placed oropharynx passed in the esophagus and stomach. Scope was then placed through the pylorus. The first and second portion of the duodenum appeared normal. Scope was then brought back the antrum this. Mildly inflamed. A biopsies was performed. Scope was unretroflexed and remainder stomach appeared normal. The GE junction was at 47 is.. The distal esophagus appeared normal. The proximal esophagus appeared Normal. Scope was withdrawn for patient.
[2017-07-16 12:45] VITALS: PULSE 72
[2017-07-16 13:09] VITALS: BP 115/74
== END 2017-07-16 13:22 | disposition home or self-care (01) ==
LOC: ORWHC2ENDO 10:55
PROVIDERS: ATTEND Surgery
DX: K63.5 Polyp of colon (principal); K57.30 Diverticulosis of large intestine without perforation or abscess without bleeding; K29.70 Gastritis, unspecified, without bleeding; Z87.19 Personal history of other diseases of the digestive system; E78.5 Hyperlipidemia, unspecified; I10 Essential (primary) hypertension; H35.30 Unspecified macular degeneration; H26.9 Unspecified cataract; M81.0 Age-related osteoporosis without current pathological fracture; F41.9 Anxiety disorder, unspecified; F32.9 Major depressive disorder, single episode, unspecified; Z79.82 Long term (current) use of aspirin; Z79.899 Other long term (current) drug therapy; Z88.5 Allergy status to narcotic agent; Z87.891 Personal history of nicotine dependence
CPT/HCPCS: 88305; 45380; 43239; J2001; J1170; J2704

== ENCOUNTER → 2017-08-19 | Outpatient (CLI) | payer OTHER ==
--- NOTE | 2017-08-23 07:51 | MM ---
Reason for exam: screening (asymptomatic). Last mammogram was performed 1 year and 2 months ago. History: Patient is postmenopausal and is nulliparous. Took estrogen for 3 years beginning at age 51. Physical Findings: A clinical breast exam by your physician is recommended on an annual basis and results should be correlated with mammographic findings. MG 3D Screening Mammo W/Cad Bilateral CC and MLO view(s) were taken. Prior study comparison: June 15, 2016, bilateral MG screening mammo w CAD. April 15, 2015, bilateral MG screening mammo w CAD. The breast tissue is heterogeneously dense. This may lower the sensitivity of mammography. There is chronic nodularity in the right breast. No significant changes when compared with prior studies. ASSESSMENT: Benign, BI-RAD 2 RECOMMENDATION: Routine screening mammogram of both breasts in 1 year.
== END | disposition home or self-care (01) ==
LOC: RADMAMWWP 09:05
PROVIDERS: ATTEND Family Medicine
DX: Z12.31 Encounter for screening mammogram for malignant neoplasm of breast (principal)
CPT/HCPCS: 77063; 77067

== ENCOUNTER → 2018-08-26 | Outpatient (CLI) | payer SELFPAY ==
[~2018-08-26] MED LIST changes: -LACTATED RINGERS 1,000 ML IV SCH; -LIDOCAINE 1% 20 ML VIAL (10MG/ML) FOR IV START INTRADERMA PRN; +SODIUM CHLORIDE 0.9% 500 ML 500 ML in EMPTY BAG 1 BAG IV PRN; +ZOLEDRONIC ACID 5 MG in SODIUM CHLORIDE 0.9% 100 ML IV ONE
[2018-08-26 12:36] VITALS: BP 117/65; PULSE 71; RESP 18; TEMP 97.7
== END ==
LOC: PROCWHC3 12:27
PROVIDERS: ATTEND Family Medicine
DX: M81.0 Age-related osteoporosis without current pathological fracture (principal)
CPT/HCPCS: 96365; J3489

== ENCOUNTER → 2018-08-26 | Outpatient (CLI) | payer SELFPAY ==
--- NOTE | 2018-08-30 08:31 | MM ---
Reason for exam: screening (asymptomatic). Last mammogram was performed 1 year ago. History: Patient is postmenopausal and is nulliparous. Took estrogen for 3 years beginning at age 51. Physical Findings: A clinical breast exam by your physician is recommended on an annual basis and results should be correlated with mammographic findings. MG Screening Mammo w CAD Bilateral CC and MLO view(s) were taken. Prior study comparison: August 19, 2017, bilateral MG 3d screening mammo w/cad. June 15, 2016, bilateral MG screening mammo w CAD. The breast tissue is heterogeneously dense. This may lower the sensitivity of mammography. There is chronic nodularity bilaterally. No significant changes when compared with prior studies. ASSESSMENT: Benign, BI-RAD 2 RECOMMENDATION: Routine screening mammogram of both breasts in 1 year.
== END ==
LOC: RADMAMWWP 14:17
PROVIDERS: ATTEND Physician Assistant Medical
DX: Z12.31 Encounter for screening mammogram for malignant neoplasm of breast (principal)
CPT/HCPCS: 77067

== ENCOUNTER 2019-06-13 19:01 | Observation (INO) | payer OTHER ==
[2019-06-13 19:29] VITALS: RESP 18
--- NOTE | 2019-06-13 20:39 | ED ---
General Adult HPI - General Chief complaint: Chest Pain Stated complaint: chest pain Time Seen by Provider: 06/13/19 20:09 Source: patient, RN notes reviewed, old records reviewed Mode of arrival: ambulatory Limitations: no limitations - History of Present Illness Initial comments: 63-year-old female presenting for evaluation of left-sided chest pain which began this morning. Patient states this has been intermittent throughout the day today. She has no known history of CAD, she has a history of hypertension. No diabetes. She has remote tobacco history but has not smoked in 20 years. Denies significant dyspnea. She has some associated nausea with this left-sided chest pain. No diaphoresis. - Related Data Home Medications Medication Instructions Recorded Confirmed Aspirin 81 mg PO DAILY 07/11/14 06/13/19 Lutein 40 mg PO DAILY 03/11/15 06/13/19 Hydrochlorothiazide [Hydrodiuril] 25 mg PO DAILY 06/22/17 06/13/19 Ubidecarenone [Co Q-10] 100 mg PO DAILY 06/22/17 06/13/19 Vits A,C,E/Lutein/Minerals 1 tab PO DAILY 06/22/17 06/13/19 [Ocuvite with Lutein Tablet] Cholecalciferol [Vitamin D3 (25 1,000 units PO DAILY 06/13/19 06/13/19 Mcg = 1000 Iu)] Simvastatin [Zocor] 20 mg PO HS 06/13/19 06/13/19 Allergies Allergy/AdvReac Type Severity Reaction Status Date / Time hydromorphone HCl Allergy Itching Verified 06/13/19 20:52 [From Dilaudid] codeine AdvReac Nausea Verified 06/13/19 20:52 Review of Systems ROS Statement: Those systems with pertinent positive or pertinent negative responses have been documented in the HPI. ROS Other: All systems not noted in ROS Statement are negative. Past Medical History Past Medical History: Eye Disorder, Hyperlipidemia, Hypertension Additional Past Medical History / Comment(s): PAST HX IDIOPATHIC NODULAR PANNICULITIS-RESOLVED NOW, pt takes hydrochlorithiazide for slight elevated blood pressure at times, beginning of bilateral macular degeneration, beginning of cataract L eye, osteoporosis with yearly reclast infusions. HYPOGLYCEMIC History of Any Multi-Drug Resistant Organisms: None Reported Additional Past Surgical History / Comment(s): SINUS SURG,. COLONOSCOPY Past Anesthesia/Blood Transfusion Reactions: No Reported Reaction Past Psychological History: Anxiety, Depression Smoking Status: Former smoker Past Alcohol Use History: Occasional Past Drug Use History: None Reported - Past Family History Mother Family Medical History: No Reported History Additional Family Medical History / Comment(s): Mother had cardiac disease and arrhythmia. She lived to be 85yrs old. Father Additional Family Medical History / Comment(s): Father had cardiac disease. General Exam Limitations: no limitations General appearance: alert, in no apparent distress Head exam: Present: atraumatic, normocephalic Eye exam: Present: normal appearance, PERRL ENT exam: Present: normal exam Neck exam: Present: normal inspection. Absent: tenderness, meningismus Respiratory exam: Present: normal lung sounds bilaterally. Absent: respiratory distress, wheezes Cardiovascular Exam: Present: regular rate, normal rhythm GI/Abdominal exam: Present: soft. Absent: distended, tenderness Extremities exam: Present: normal inspection, normal capillary refill. Absent: pedal edema Back exam: Present: normal inspection Neurological exam: Present: alert, oriented X3, CN II-XII intact. Absent: motor sensory deficit Psychiatric exam: Present: normal affect, normal mood Skin exam: Present: warm, dry, intact. Absent: cyanosis, diaphoretic Course Vital Signs 06/13/19 06/13/19 06/13/19 19:27 21:00 21:30 Temperature 98.2 F Pulse Rate 68 64 67 Respiratory 18 18 18 Rate Blood Pressure 136/77 130/63 132/83 O2 Sat by Pulse 98 96 Oximetry EKG Findings - EKG Comments: EKG Findings:: EKG: Normal sinus rhythm, rate of 69, AR interval 144, QRS duration 82, QTC 4:30, no ST segment elevation or depression. Medical Decision Making - Medical Decision Making 63-year-old with intermittent chest pain. Patient has hypertension and hypercholesterolemia, no known history of CAD. EKG is nonischemic with no ST segment elevation or depression per chest x-ray negative for acute cardiopulmonary disease. She has a normal CBC, normal CMP with negative initial troponin. I will place his patient observation for serial cardiac enzymes, telemetry, cardiology consultation. I discussed case with Dr. Cardona will admit patient. - Lab Data Result diagrams: 06/13/19 20:45 06/13/19 20:45 Lab Results 06/13/19 06/13/19 06/13/19 Range/Units 20:45 20:45 20:45 WBC 4.2 (3.8-10.6) k/uL RBC 4.58 (3.80-5.40) m/uL Hgb 14.7 (11.4-16.0) gm/dL Hct 43.2 (34.0-46.0) % MCV 94.3 (80.0-100.0) fL MCH 32.0 (25.0-35.0) pg MCHC 33.9 (31.0-37.0) g/dL RDW 11.9 (11.5-15.5) % Plt Count 173 (150-450) k/uL Neutrophils % 60 % Lymphocytes % 31 % Monocytes % 5 % Eosinophils % 2 % Basophils % 1 % Neutrophils # 2.5 (1.3-7.7) k/uL Lymphocytes # 1.3 (1.0-4.8) k/uL Monocytes # 0.2 (0-1.0) k/uL Eosinophils # 0.1 (0-0.7) k/uL Basophils # 0.0 (0-0.2) k/uL PT 9.6 (9.0-12.0) sec INR 0.9 (<1.2) APTT 27.8 (22.0-30.0) sec Sodium 140 (137-145) mmol/L Potassium 3.9 (3.5-5.1) mmol/L Chloride 102 (98-107) mmol/L Carbon Dioxide 29 (22-30) mmol/L Anion Gap 9 mmol/L BUN 27 H (7-17) mg/dL Creatinine 0.81 (0.52-1.04) mg/dL Est GFR (CKD-EPI)AfAm 89 (>60 ml/min/1.73 sqM) Est GFR (CKD-EPI)NonAf 78 (>60 ml/min/1.73 sqM) Glucose 94 (74-99) mg/dL Calcium 9.7 (8.4-10.2) mg/dL Magnesium 2.2 (1.6-2.3) mg/dL Total Bilirubin 0.5 (0.2-1.3) mg/dL AST 44 H (14-36) U/L ALT 60 H (4-34) U/L Alkaline Phosphatase 75 (38-126) U/L Troponin I (0.000-0.034) ng/mL NT-Pro-B Natriuret Pep pg/mL Total Protein 7.7 (6.3-8.2) g/dL Albumin 4.9 (3.5-5.0) g/dL Lipase 89 (23-300) U/L 06/13/19 06/13/19 Range/Units 20:45 20:45 WBC (3.8-10.6) k/uL RBC (3.80-5.40) m/uL Hgb (11.4-16.0) gm/dL Hct (34.0-46.0) % MCV (80.0-100.0) fL MCH (25.0-35.0) pg MCHC (31.0-37.0) g/dL RDW (11.5-15.5) % Plt Count (150-450) k/uL Neutrophils % % Lymphocytes % % Monocytes % % Eosinophils % % Basophils % % Neutrophils # (1.3-7.7) k/uL Lymphocytes # (1.0-4.8) k/uL Monocytes # (0-1.0) k/uL Eosinophils # (0-0.7) k/uL Basophils # (0-0.2) k/uL PT (9.0-12.0) sec INR (<1.2) APTT (22.0-30.0) sec Sodium (137-145) mmol/L Potassium (3.5-5.1) mmol/L Chloride (98-107) mmol/L Carbon Dioxide (22-30) mmol/L Anion Gap mmol/L BUN (7-17) mg/dL Creatinine (0.52-1.04) mg/dL Est GFR (CKD-EPI)AfAm (>60 ml/min/1.73 sqM) Est GFR (CKD-EPI)NonAf (>60 ml/min/1.73 sqM) Glucose (74-99) mg/dL Calcium (8.4-10.2) mg/dL Magnesium (1.6-2.3) mg/dL Total Bilirubin (0.2-1.3) mg/dL AST (14-36) U/L ALT (4-34) U/L Alkaline Phosphatase (38-126) U/L Troponin I <0.012 (0.000-0.034) ng/mL NT-Pro-B Natriuret Pep 88 pg/mL Total Protein (6.3-8.2) g/dL Albumin (3.5-5.0) g/dL Lipase (23-300) U/L Disposition Clinical Impression: Chest pain Disposition: ADMITTED IP TO THIS [facility] Condition: Stable Is patient prescribed a controlled substance at d/c from ED?: No Referrals: Lenore Lee DO [Primary Care Provider] - 1-2 days Decision to Admit Reason: Admit from EC Decision Date: 06/13/19 Decision Time: 22:26
--- NOTE | 2019-06-13 20:43 | XR ---
EXAMINATION TYPE: XR chest 2V DATE OF EXAM: 06/13/2019 COMPARISON: 06/22/2017 HISTORY: Chest pain Heart and mediastinum are normal. Lungs are clear. Diaphragm is normal. Bony thorax is intact. IMPRESSION: Normal chest. No change.
[2019-06-13 20:55] LABS: Basophils % (A) 1 %; Eosinophils # (A) 0.1 k/uL (0-0.7); Eosinophils % (A) 2 %; HCT 43.2 % (34.0-46.0); HGB 14.7 gm/dL (11.4-16.0); Lymphocytes # (A) 1.3 k/uL (1.0-4.8); Lymphocytes % (A) 31 %; MCHC 33.9 g/dL (31.0-37.0); MCV 94.3 fL (80.0-100.0); Mean Platelet Volume 8.1; Monocytes # (A) 0.2 k/uL (0-1.0); Monocytes % (A) 5 %; Neutrophils # (A) 2.5 k/uL (1.3-7.7); Neutrophils % (A) 60 %; Platelet Count 173 k/uL (150-450); RBC 4.58 m/uL (3.80-5.40); RDW 11.9 % (11.5-15.5); WBC 4.2 k/uL (3.8-10.6)
[2019-06-13 21:04] LABS: Albumin 4.9 g/dL (3.5-5.0); Calcium 9.7 mg/dL (8.4-10.2); Magnesium 2.2 mg/dL (1.6-2.3); Potassium 3.9 mmol/L (3.5-5.1); Total Bilirubin 0.5 mg/dL (0.2-1.3); Total Protein 7.7 g/dL (6.3-8.2)
[2019-06-13] MEDS ORDERED: ASPIRIN 325 MG TAB PO STA (21:09)
[2019-06-13 21:17] LABS: INR 0.9 (<1.2); Partial Thromboplastin Time 27.8 sec (22.0-30.0); Prothrombin Time 9.6 sec (9.0-12.0)
[2019-06-13] MEDS ORDERED: NALOXONE 0.4 MG/ML 1 ML VIAL IV PRN (22:20)
[2019-06-13] MEDS ORDERED: ACETAMINOPHEN TAB 325 MG TAB PO PRN (22:20)
[2019-06-13] MEDS ORDERED: ONDANSETRON 4 MG/2 ML VIAL IVP PRN (22:20)
[2019-06-13] MEDS ORDERED: NITROGLYCERIN SL TABS 0.4 MG TAB SUBLINGUAL PRN (22:26)
[2019-06-14] MEDS ORDERED: HYDROCHLOROTHIAZIDE 25 MG TAB PO SCH (09:00)
[2019-06-14] MEDS ORDERED: ASPIRIN 81 MG PO SCH (09:00)
--- NOTE | 2019-06-14 10:03 | P.CRDCN ---
History of Present Illness History of present illness: HISTORY OF PRESENTING ILLNESS This is a pleasant 63-year-old female past medical history significant for hypertension, dyslipidemia, former nicotine dependence and frequent alcohol use. She denies prior history of coronary artery disease and does not follow with a channeler runner for any reason. We have been asked to see in consultation for chest pain. She states yesterday while sitting down she felt a discomfort under her left breast with radiation up to the left collarbone at times. The discomfort was sharp in nature and associated with mild nausea and feeling mildly lightheaded. The symptoms are not exacerbated by activity or exertion. There is no specific aggravating or alleviating factors. She denies associated palpitations, diaphoresis or shortness of breath. DIAGNOSTICS EKG reveals His mechanism with no acute ST or T wave abnormalities noted. Chest xray negative for an acute cardiopulmonary process. Laboratory reviewed, CBC unremarkable, sodium 140, potassium 3.9, creatinine 0.81, AST 44, ALT 60, cardiac enzymes negative 3 and in T proBNP 88. Current cardiac medications include aspirin 81 mg daily, hydrochlorothiazide 25 mg daily and simvastatin 20 mg at bedtime. Most recent echocardiogram obtained in 2018 revealed preserved LV systolic function. Most recent stress test in 2018 with a stress echocardiogram was negative for stress-induced cardiac ischemia. REVIEW OF SYSTEMS At the time of my exam: CONSTITUTIONAL: Denies fever or chills. CARDIOVASCULAR: Denies chest pain, shortness of breath, orthopnea, PND or palpitations. RESPIRATORY: Denies cough. GASTROINTESTINAL: Denies abdominal pain, diarrhea, constipation, nausea or vomiting. MUSCULOSKELETAL: Denies myalgias. NEUROLOGIC: Denies numbness, tingling or weakness. ENDOCRINE: Denies fatigue, weight change, polydipsia or polyurina. GENITOURINARY: Denies burning, hematuria or urgency with micturation. HEMATOLOGIC: Denies history of anemia or bleeding. PHYSICAL EXAMINATION Blood pressure 101/69 heart rate 74 afebrile and maintaining oxygen saturation on room air. CONSTITUTIONAL: No apparent distress. HEENT: Head is normocephalic. Pupils are equal, round. Sclerae anicteric. Mucous membranes of the mouth are moist. No JVD. No carotid bruit. CHEST EXAMINATION: Lungs are clear to auscultation. No chest wall tenderness is noted on palpation or with deep breathing. HEART EXAMINATION: Regular rate and rhythm. S1, S2 heard. No murmurs, gallops or rub. ABDOMEN: Soft, nontender. Positive bowel sounds. EXTREMITIES: 2+ peripheral pulses, no lower extremity edema and no calf tend erness. NEUROLOGIC EXAMINATION: Patient is awake, alert and oriented x3. ASSESSMENT Chest pain, atypical. An acute coronary event has been ruled out. Elevated liver enzymes, mild. Patient states this is chronic and followed by her PCP regularly. Hypertension Dyslipidemia Former nicotine dependence PLAN An acute coronary event has been ruled out. Perform stress echocardiogram to assess her stress-induced cardiac ischemia. Recommend complete alcohol cessation. Consider possible gallstones. If stress test is normal she is stable from a cardiac perspective. Thank you kindly for this consultation. Nurse Practitioner note has been reviewed, I agree with a documented findings and plan of care. Patient was seen and examined. Past Medical History Past Medical History: Eye Disorder, Hyperlipidemia, Hypertension Additional Past Medical History / Comment(s): PAST HX IDIOPATHIC NODULAR PANNICULITIS-RESOLVED NOW, pt takes hydrochlorithiazide for slight elevated blood pressure at times, beginning of bilateral macular degeneration, beginning of cataract L eye, osteoporosis with yearly reclast infusions. HYPOGLYCEMIC History of Any Multi-Drug Resistant Organisms: None Reported Additional Past Surgical History / Comment(s): SINUS SURG,. COLONOSCOPY Past Anesthesia/Blood Transfusion Reactions: No Reported Reaction Past Psychological History: Anxiety, Depression Additional Psychological History / Comment(s): Pt resides with her spouse. She works for [employer]. She is independent. She states she has weaned herself off Effexor and takes no medications for anxiety. Smoking Status: Former smoker Past Alcohol Use History: Occasional Additional Past Alcohol Use History / Comment(s): Pt started smoking in 1968 and QUIT SMOKING 1996 Past Drug Use History: None Reported - Past Family History Mother Family Medical History: No Reported History Additional Family Medical History / Comment(s): Mother had cardiac disease and arrhythmia. She lived to be 85yrs old. Father Additional Family Medical History / Comment(s): Father had cardiac disease. Medications and Allergies Home Medications Medication Instructions Recorded Confirmed Type Aspirin 81 mg PO DAILY 07/11/14 06/13/19 History Lutein 40 mg PO DAILY 03/11/15 06/13/19 History Hydrochlorothiazide [Hydrodiuril] 25 mg PO DAILY 06/22/17 06/13/19 History Ubidecarenone [Co Q-10] 100 mg PO DAILY 06/22/17 06/13/19 History Vits A,C,E/Lutein/Minerals 1 tab PO DAILY 06/22/17 06/13/19 History [Ocuvite with Lutein Tablet] Cholecalciferol [Vitamin D3 (25 1,000 units PO DAILY 06/13/19 06/13/19 History Mcg = 1000 Iu)] Simvastatin [Zocor] 20 mg PO HS 06/13/19 06/13/19 History Allergies Allergy/AdvReac Type Severity Reaction Status Date / Time hydromorphone HCl Allergy Itching Verified 06/13/19 20:52 [From Dilaudid] codeine AdvReac Nausea Verified 06/13/19 20:52 Physical Exam Vitals: Vital Signs Temp Pulse Pulse Resp BP BP BP 06/14/19 07:00 97.8 F 74 18 101/69 06/14/19 04:00 98.0 F 59 L 18 98/57 06/14/19 03:30 71 18 06/14/19 00:00 71 18 06/13/19 22:40 98.1 F 71 18 145/79 06/13/19 21:30 67 18 132/83 06/13/19 21:00 64 18 130/63 06/13/19 19:27 98.2 F 68 18 136/77 Pulse Ox 06/14/19 07:00 97 06/14/19 04:00 98 06/14/19 03:30 06/14/19 00:00 06/13/19 22:40 95 06/13/19 21:30 96 06/13/19 21:00 98 06/13/19 19:27 Intake and Output 06/13/19 06/14/19 06/14/19 22:59 06:59 14:59 Other: # Voids 1 1 Weight 65.771 kg 65.5 kg Results 06/13/19 20:45 06/13/19 20:45 Cardiac Enzymes 06/13/19 06/13/19 06/14/19 Range/Units 20:45 20:45 02:51 AST 44 H (14-36) U/L Troponin I <0.012 <0.012 (0.000-0.034) ng/mL 06/14/19 Range/Units 08:09 AST (14-36) U/L Troponin I <0.012 (0.000-0.034) ng/mL Coagulation 06/13/19 Range/Units 20:45 PT 9.6 (9.0-12.0) sec APTT 27.8 (22.0-30.0) sec CBC 06/13/19 Range/Units 20:45 WBC 4.2 (3.8-10.6) k/uL RBC 4.58 (3.80-5.40) m/uL Hgb 14.7 (11.4-16.0) gm/dL Hct 43.2 (34.0-46.0) % Plt Count 173 (150-450) k/uL Comprehensive Metabolic Panel 06/13/19 Range/Units 20:45 Sodium 140 (137-145) mmol/L Potassium 3.9 (3.5-5.1) mmol/L Chloride 102 (98-107) mmol/L Carbon Dioxide 29 (22-30) mmol/L BUN 27 H (7-17) mg/dL Creatinine 0.81 (0.52-1.04) mg/dL Glucose 94 (74-99) mg/dL Calcium 9.7 (8.4-10.2) mg/dL AST 44 H (14-36) U/L ALT 60 H (4-34) U/L Alkaline Phosphatase 75 (38-126) U/L Total Protein 7.7 (6.3-8.2) g/dL Albumin 4.9 (3.5-5.0) g/dL Current Medications Generic Name Dose Route Start Last Admin Trade Name Freq PRN Reason Stop Dose Admin Acetaminophen 650 mg 06/13/19 22:20 Tylenol Tab PO Q6HR PRN Mild Pain or Fever > 100.5 Aspirin 81 mg 06/14/19 09:00 Aspirin PO DAILY [facility] Atorvastatin Calcium 10 mg 06/14/19 21:00 Lipitor PO HS [facility] Hydrochlorothiazide 25 mg 06/14/19 09:00 Hydrodiuril PO DAILY [facility] Naloxone HCl 0.2 mg 06/13/19 22:20 Narcan IV Q2M PRN Opioid Reversal Nitroglycerin 0.4 mg 06/13/19 22:26 Nitrostat SUBLINGUAL Q5M PRN Chest Pain Ondansetron HCl 4 mg 06/13/19 22:20 Zofran IVP Q8HR PRN Nausea And Vomiting Intake and Output 06/13/19 06/14/19 06/14/19 22:59 06:59 14:59 Other: # Voids 1 1 Weight 65.771 kg 65.5 kg 06/13/19 20:45 06/13/19 20:45
[2019-06-14 11:20] VITALS: BP 128/84; PULSE 80; TEMP 97.4
--- NOTE | 2019-06-14 12:46 | P.STRESS ---
- Stress Test Note Stress Test Results/Findings: Exam Performed: stress echo exercise Exam Date: 06/14/19 Reason for Exam: CHEST PAIN Height: 5 ft 1 in Weight: 65.5 kg Protocol: MARQUITA Stage: 4 Duration of Exercise: 10:15 Resting Heart Rate: 67 Resting Blood Pressure: 156/78 Maximum Achieved Heart Rate: 134 Maximum Achieved Blood Pressure: 199/50 85% PMHR: 133 100% PMHR: 156 METS: 11.5 Technologist Comment: Stress Test Results/Findings: This is a 63-year-old female with history of hypertension, hypercholesterolemia, being evaluated for chest chest pain and shortness of breath. Stress data : Baseline EKG showed sinus rhythm with normal MT interval and QRS duration. Blood pressure at rest is 156/78, pulse rate of 67. Patient walked on a Marquita protocol for 10 minutes and 15 seconds achieving a maximal rate of 134 with a blood pressure 175/50. EKGs taken during and after exercise did not reveal any significant changes of ischemia. Patient did not express any chest pain. Echo data: Baseline echo images show normal wall motion and thickening. Exercise echo images showed augmentation of wall motion and thickening in all th e segments. Final impression: #1. Negative stress test #2. Negative stress echo
[2019-06-14] MEDS ORDERED: ATORVASTATIN 10 MG TAB PO SCH (21:00)
--- NOTE | 2019-06-15 16:35 | ECHOS ---
Stress Test Results/Findings: Exam Performed: stress echo exercise Exam Date: 06/14/19 Reason for Exam: CHEST PAIN Height: 5 ft 1 in Weight: 65.5 kg Protocol: MARQUITA Stage: 4 Duration of Exercise: 10:15 Resting Heart Rate: 67 Resting Blood Pressure: 156/78 Maximum Achieved Heart Rate: 134 Maximum Achieved Blood Pressure: 199/50 85% PMHR: 133 100% PMHR: 156 METS: 11.5 Technologist Comment: Stress Test Results/Findings: This is a 63-year-old female with history of hypertension, hypercholesterolemia, being evaluated for chest chest pain and shortness of breath. Stress data : Baseline EKG showed sinus rhythm with normal KS interval and QRS duration. Blood pressure at rest is 156/78, pulse rate of 67. Patient walked on a Marquita protocol for 10 minutes and 15 seconds achieving a maximal rate of 134 with a blood pressure 175/50. EKGs taken during and after exercise did not reveal any significant changes of ischemia. Patient did not express any chest pain. Echo data: Baseline echo images show normal wall motion and thickening. Exercise echo images showed augmentation of wall motion and thickening in all the segments. Final impression: #1. Negative stress test #2. Negative stress echo MTDD
--- NOTE | 2019-06-19 09:08 | P.HPIM ---
History of Present Illness H&P Date: 06/14/19 Chief Complaint: chest pain Maryana Espino is a 63-year-old female past medical history significant for hypertension, dyslipidemia, former nicotine dependence and f requent alcohol use who presented to the ED complaining of chest pain. She states yesterday while sitting down she felt a discomfort under her left breast with radiation up to the left collarbone at times. The discomfort was sharp in nature and associated with mild nausea and feeling mildly lightheaded. She currently denies any chest discomfort. The symptoms are not exacerbated by activity or exertion. There is no specific aggravating or alleviating factors. She denies associated palpitations, diaphoresis or shortness of breath. She denies prior history of coronary artery disease and does not follow with a lumber straightened for any reason. In the ED her vitals were stable, labs unremarkable, EKG with sinus rhythm, trop negative x3. Review of Systems All systems: negative Constitutional: Reports as per HPI, Denies chills, Denies fever Eyes: denies blurred vision, denies pain Ears, nose, mouth and throat: Denies headache, Denies sore throat Cardiovascular: Reports chest pain, Denies shortness of breath Respiratory: Denies cough Gastrointestinal: Denies abdominal pain, Denies diarrhea, Denies nausea, Denies vomiting Genitourinary: Denies dysuria, Denies hematuria Musculoskeletal: Denies myalgias Integumentary: Denies pruritus, Denies rash Neurological: Denies numbness, Denies weakness Psychiatric: Denies anxiety, Denies depression Endocrine: Denies fatigue, Denies weight change Past Medical History Past Medical History: Eye Disorder, Hyperlipidemia, Hypertension Additional Past Medical History / Comment(s): PAST HX IDIOPATHIC NODULAR PANNICULITIS-RESOLVED NOW, pt takes hydrochlorithiazide for slight elevated blood pressure at times, beginning of bilateral macular degeneration, beginning of cataract L eye, osteoporosis with yearly reclast infusions. HYPOGLYCEMIC History of Any Multi-Drug Resistant Organisms: None Reported Additional Past Surgical History / Comment(s): SINUS SURG,. COLONOSCOPY Past Anesthesia/Blood Transfusion Reactions: No Reported Reaction Past Psychological History: Anxiety, Depression Additional Psychological History / Comment(s): Pt resides with her spouse. She works for [employer]. She is independent. She states she has weaned herself off Effexor and takes no medications for anxiety. Smoking Status: Former smoker Past Alcohol Use History: Occasional Additional Past Alcohol Use History / Comment(s): Pt started smoking in 1968 and QUIT SMOKING 1996 Past Drug Use History: None Reported - Past Family History Mother Family Medical History: No Reported History Additional Family Medical History / Comment(s): Mother had cardiac disease and arrhythmia. She lived to be 85yrs old. Father Additional Family Medical History / Comment(s): Father had cardiac disease. Medications and Allergies Home Medications Medication Instructions Recorded Confirmed Type Aspirin 81 mg PO DAILY 07/11/14 06/13/19 History Lutein 40 mg PO DAILY 03/11/15 06/13/19 History Hydrochlorothiazide [Hydrodiuril] 25 mg PO DAILY 06/22/17 06/13/19 History Ubidecarenone [Co Q-10] 100 mg PO DAILY 06/22/17 06/13/19 History Vits A,C,E/Lutein/Minerals 1 tab PO DAILY 06/22/17 06/13/19 History [Ocuvite with Lutein Tablet] Cholecalciferol [Vitamin D3 (25 1,000 units PO DAILY 06/13/19 06/13/19 History Mcg = 1000 Iu)] Simvastatin [Zocor] 20 mg PO HS 06/13/19 06/13/19 History Allergies Allergy/AdvReac Type Severity Reaction Status Date / Time hydromorphone HCl Allergy Itching Verified 06/13/19 20:52 [From Dilaudid] codeine AdvReac Nausea Verified 06/13/19 20:52 Physical Exam Gen.: Well-developed, well-nourished white female in no acute distress HEENT: Normocephalic, atraumatic, mucous membranes moist Neck: Supple, no JVD, no thyromegaly Lymph: No cervical or axillary lymphadenopathy CV: Regular rate and rhythm, no murmur, pulses 2+ Lungs: Normal respiratory effort, no wheezes or rales Abdomen: Soft, nontender, nondistended, no organomegaly Neuro: Alert and oriented 3, no focal deficit Skin: Warm and dry Results CBC & Chem 7: 06/13/19 20:45 06/13/19 20:45 Thrombosis Risk Factor Assmnt - Choose All That Apply Any of the Below Risk Factors Present?: Yes Each Factor Represents 1 point: Acute OR, Obesity (BMI >25) Other Risk Factors: Yes Each Risk Factor Represents 2 Points: Age 61-74 years Other congenital or acquired thrombophilia - If yes, enter type in comment: No Thrombosis Risk Factor Assessment Total Risk Factor Score: 4 Thrombosis Risk Factor Assessment Level: Moderate Risk Assessment and Plan (1) Chest pain Status: Acute Code(s): R07.9 - CHEST PAIN, UNSPECIFIED SNOMED Code(s): 87630687 (2) Essential hypertension Status: Acute Code(s): I10 - ESSENTIAL (PRIMARY) HYPERTENSION SNOMED Code(s): 85714238 (3) Hyperlipidemia Status: Acute Code(s): E78.5 - HYPERLIPIDEMIA, UNSPECIFIED SNOMED Code(s): 46838888 Plan: 1. Chest pain. ACS ruled out. Cardiology consulted and stress echo ordered 2. Essential hypertension. 3. Hyperlipidemia.
--- NOTE | 2019-06-19 09:09 | P.DS ---
Providers Date of admission: 06/13/19 22:22 Expected date of discharge: 06/14/19 Attending physician: Cali Cardona MD Consults: 06/13/19 22:21 Consult Physician Routine Consulting Provider: Fely Mishra Consult Reason/Comments: CP Do you want consulting provider notified?: Yes Primary care physician: Lenore Lee - Discharge Diagnosis(es) (1) Chest pain Status: Acute (2) Essential hypertension Status: Acute (3) Hyperlipidemia Status: Acute Hospital Course: Maryana Espino is a 63-year-old female past medical history significant for hypertension, dyslipidemia, former nicotine dependence and frequent alcohol use who presented to the ED complaining of chest pain. She states yesterday while sitting down she felt a discomfort under her left breast with radiation up to the left collarbone at times. The discomfort was sharp in nature and associated with mild nausea and feeling mildly lightheaded. She currently denies any chest discomfort. The symptoms are not exacerbated by activity or exertion. There is no specific aggravating or alleviating factors. She denies associated palpitations, diaphoresis or shortness of breath. She denies prior history of coronary artery disease and does not follow with a client technologies specialist for any reason. In the ED her vitals were stable, labs unremarkable, EKG with sinus rhythm, trop negative x3. Pt was admitted to medicine and cardiology consulted. Her home antihypertensive was continued. She underwent a stress echo which was negative. She is discharged in stable condition and recommended to follow up with her PCP. Patient Condition at Discharge: Stable Plan - Discharge Summary Discharge Rx Participant: No New Discharge Prescriptions: Continue Aspirin 81 mg PO DAILY Lutein 40 mg PO DAILY Vits A,C,E/Lutein/Minerals [Ocuvite with Lutein Tablet] 1 tab PO DAILY Hydrochlorothiazide [Hydrodiuril] 25 mg PO DAILY Ubidecarenone [Co Q-10] 100 mg PO DAILY Simvastatin [Zocor] 20 mg PO HS Cholecalciferol [Vitamin D3 (25 Mcg = 1000 Iu)] 1,000 units PO DAILY Discharge Medication List Aspirin 81 mg PO DAILY 07/11/14 [History] Lutein 40 mg PO DAILY 03/11/15 [History] Hydrochlorothiazide [Hydrodiuril] 25 mg PO DAILY 06/22/17 [History] Ubidecarenone [Co Q-10] 100 mg PO DAILY 06/22/17 [History] Vits A,C,E/Lutein/Minerals [Ocuvite with Lutein Tablet] 1 tab PO DAILY 06/22/17 [History] Cholecalciferol [Vitamin D3 (25 Mcg = 1000 Iu)] 1,000 units PO DAILY 06/13/19 [History] Simvastatin [Zocor] 20 mg PO HS 06/13/19 [History] Follow up Appointment(s)/Referral(s): Fely Mishra MD [STAFF PHYSICIAN] - 1 Week (office will call patient with appointment date and time.) Lenore Lee DO [Primary Care Provider] - 3 Days Patient Instructions/Handouts: Chest Pain (DC) Activity/Diet/Wound Care/Special Instructions: Confirm cardiology follow-up visit prior to discharge. Discharge Disposition: HOME SELF-CARE
== END 2019-06-14 15:25 | disposition home or self-care (01) ==
LOC: EC 19:01 → 1SOBS 22:22
PROVIDERS: ADMIT Family Medicine; ATTEND Family Medicine
DX: R07.89 Other chest pain (principal); E78.00 Pure hypercholesterolemia, unspecified; E78.5 Hyperlipidemia, unspecified; I10 Essential (primary) hypertension; Z87.891 Personal history of nicotine dependence; Z79.899 Other long term (current) drug therapy; M81.0 Age-related osteoporosis without current pathological fracture; Z82.49 Family history of ischemic heart disease and other diseases of the circulatory system; Z79.82 Long term (current) use of aspirin; H35.30 Unspecified macular degeneration; Z88.5 Allergy status to narcotic agent; E66.9 Obesity, unspecified; Z68.27 Body mass index [BMI] 27.0-27.9, adult; R74.8 Abnormal levels of other serum enzymes; H26.9 Unspecified cataract; R11.0 Nausea; R42 Dizziness and giddiness; Z72.89 Other problems related to lifestyle
CPT/HCPCS: 99285; 36415; 93005; 93351; 83880; 80053; 83690; 83735; 84484 ×2; 85025; 85610; 85730; 71046; G0378 ×2

== ENCOUNTER → 2020-09-04 | Outpatient (CLI) | payer MEDICARE ==
--- NOTE | 2020-09-05 11:18 | MM ---
Reason for exam: screening (asymptomatic). Last mammogram was performed 2 years ago. History: Patient is postmenopausal and is nulliparous. Took estrogen for 3 years beginning at age 51. Physical Findings: A clinical breast exam by your physician is recommended on an annual basis and results should be correlated with mammographic findings. MG 3D Screening Mammo W/Cad Bilateral CC and MLO view(s) were taken. Prior study comparison: August 26, 2018, bilateral MG screening mammo w CAD. August 19, 2017, bilateral MG 3d screening mammo w/cad. The breast tissue is heterogeneously dense. This may lower the sensitivity of mammography. Stable nodule uppeer outer right breast. No significant changes when compared with prior studies. ASSESSMENT: Benign, BI-RAD 2 RECOMMENDATION: Routine screening mammogram of both breasts in 1 year.
== END | disposition home or self-care (01) ==
LOC: RADMAMWWP 14:47
PROVIDERS: ATTEND Family Medicine
DX: Z12.31 Encounter for screening mammogram for malignant neoplasm of breast (principal); Z78.0 Asymptomatic menopausal state
CPT/HCPCS: 77063; 77067

== ENCOUNTER → 2021-09-17 | Outpatient (CLI) | payer MEDICARE ==
--- NOTE | 2021-09-19 11:30 | MM ---
Reason for exam: screening (asymptomatic). Last mammogram was performed 1 year ago. History: Patient is postmenopausal and is nulliparous. Took estrogen for 3 years beginning at age 51. Physical Findings: A clinical breast exam by your physician is recommended on an annual basis and results should be correlated with mammographic findings. MG 3D Screening Mammo W/Cad Bilateral CC and MLO view(s) were taken. Prior study comparison: September 04, 2020, bilateral MG 3d screening mammo w/cad. August 26, 2018, bilateral MG screening mammo w CAD. The breast tissue is heterogeneously dense. This may lower the sensitivity of mammography. There is stable chronic nodularity in the right axilla and left breast. There is no discrete abnormality. ASSESSMENT: Benign, BI-RAD 2 RECOMMENDATION: Routine screening mammogram of both breasts in 1 year.
== END | disposition home or self-care (01) ==
LOC: RADMAMWWP 16:40
PROVIDERS: ATTEND Family Medicine
DX: Z12.31 Encounter for screening mammogram for malignant neoplasm of breast (principal); Z78.0 Asymptomatic menopausal state
CPT/HCPCS: 77063; 77067

== ENCOUNTER → 2022-05-25 | Outpatient (CLI) | payer MEDICARE ==
--- NOTE | 2022-05-25 11:07 | CA ---
Exercise Stress Test Report Name: Maryana Espino Exam Date: 05/25/2022 09:19 Exam Location: [place] Stress Ht (in): 61 Wt (lb): 143 BSA: 1.64 Ordering Phys: Lenore Lee DO Referring Phys: Sindy Manrique PAC Technologist: Jey Boo Age: 66 Gender: F : 1955 Procedure CPT: Indications: I10 hypertention ICD-10 Codes: Patient History: Medications: SEE LIST Meds past 24 hrs: Pretest Chest Pain: STRESS TEST Sincere Protocol Exercise Duration (min:sec): 10:[address] Depressions (mm): Angina Score: Kelsey Score: Resting HR (bpm): 61 Peak HR (bpm): 132 Resting BP (mmHg): 122 / 84 Peak BP (mmHg): 179 / 60 MPHR: 153 Target HR: 130 % MPHR: 86 METS: 12.1 Total Dose: Peak Dose: Atropine: Double Product: 88277 BP Response: Stress Termination: TARGET HR REACHED/MAX EXERTION Stress Symptoms: NO SYMPTOMS Stress Summary: ECG ANALYSIS Resting ECG: Stress ECG: CONCLUSIONS Baseline EKG revealed normal sinus rhythm without significant ST-T changes patient walked on a standard Sincere protocol for 10 minutes 5 seconds and achieved a maximal heart rate of 132 bpm which is 85% of predicted maximal. She developed fatigue and shortness of breath but did not have any EKG changes to indicate ischemia. By EKG criteria this is a negative stress test with excellent exercise capacity. Dr. Omari Arias MD (Electronically Signed) Final Date: 25 May 2022 11:06
== END | disposition home or self-care (01) ==
LOC: RADNMMAIN 08:41
PROVIDERS: ATTEND Family Medicine
DX: I10 Essential (primary) hypertension (principal); R06.09 Other forms of dyspnea; R03.0 Elevated blood-pressure reading, without diagnosis of hypertension; R06.02 Shortness of breath
CPT/HCPCS: 93017

== ENCOUNTER → 2022-06-17 | Outpatient (CLI) | payer MEDICARE ==
[2022-06-17 18:32] LABS: Thyroid Peroxidase Antibodies <9.0 U/mL (0.0-33.0)
[2022-06-17 19:21] LABS: Calcium 9.6 mg/dL (8.7-10.3); T4, Free (Free Thyroxine) 1.26 ng/dL (0.800-1.800)
== END | disposition home or self-care (01) ==
LOC: LABWHC1 10:51
PROVIDERS: ATTEND Nurse Practitioner Family
DX: E06.9 Thyroiditis, unspecified (principal); E07.9 Disorder of thyroid, unspecified
CPT/HCPCS: 36415; 82306; 82310; 83970; 84439; 84443; 84481; 86038; 86376

== ENCOUNTER → 2022-06-17 | Outpatient (CLI) | payer MEDICARE ==
--- NOTE | 2022-06-17 12:06 | FL ---
ESOPHOGRAM. HISTORY: Dysphagia Esophagram was performed per the air contrast technique. The patient swallowed barium and effervesce nt crystals without difficulty or delay. Esophageal peristalsis and motility appear to be within normal limits. There is no evidence for filling defect, mass or diverticulum. No hiatal hernia seen. Subsequently single contrast cervical esophagram was performed which fails demonstrate evidence for a spiration penetration or mass. IMPRESSION: Unremarkable study.
== END | disposition home or self-care (01) ==
LOC: RADUSWWP 10:47
PROVIDERS: ATTEND Surgery Plastic and Reconstructive Surgery
DX: R13.10 Dysphagia, unspecified (principal)
CPT/HCPCS: 74220

== ENCOUNTER → 2023-02-18 | Outpatient (CLI) | payer MEDICARE ==
--- NOTE | 2023-02-19 10:00 | CA ---
Transthoracic Echo Report Name: Maryana Espino Age: 67 Gender: F : 1955 Exam Date: 02/18/2023 15:38 Exam Location: [facility] Ht (in): 61 Wt (lb): 140 Ordering Physician: Lenore Lee DO Attending/Referring Phys: Sindy Manrique PAC Instructor Weaving Jackie Reyes RDCS Procedure CPT: Indications: R07.9 CHEST PAIN Cardiac Hx: Technical Quality: Fair Contrast 1: Total Dose (mL): Contrast 2: Total Dose (mL): MEASUREMENTS (Male / Female) Normal Values 2D ECHO LV Diastolic Diameter PLAX 3.9 cm 4.2 - 5.9 / 3.9 - 5.3 cm LV Systolic Diameter PLAX 2.1 cm IVS Diastolic Thickness 0.9 cm 0.6 - 1.0 / 0.6 - 0.9 cm LVPW Diastolic Thickness 1.1 cm 0.6 - 1.0 / 0.6 - 0.9 cm LV Relative Wall Thickness 0.5 RV Internal Dim ED PLAX 2.9 cm LA Volume 36.5 cm??? 18 - 58 / 22 - 52 cm??? LA Volume Index 21.8 cm???/m??? 16 - 28 cm???/m??? M-MODE Aortic Root Diameter MM 3.1 cm LA Systolic Diameter MM 3.4 cm LA Ao Ratio MM 1.1 AV Cusp Separation MM 2.0 cm DOPPLER AV Peak Velocity 152.0 cm/s AV Peak Gradient 9.2 mmHg AV Mean Velocity 87.1 cm/s AV Mean Gradient 3.8 mmHg AV Velocity Time Integral 25.7 cm AI Peak Velocity 431.8 cm/s AI Peak Gradient 74.6 mmHg AI Pressure Half Time 593.6 ms LVOT Peak Velocity 127.6 cm/s LVOT Peak Gradient 6.5 mmHg LVOT Velocity Time Integral 21.8 cm MV Area PHT 2.3 cm??? Mitral E Point Velocity 54.0 cm/s Mitral A Point Velocity 75.6 cm/s Mitral E to A Ratio 0.7 MV Deceleration Time 324.9 ms MV E' Velocity 4.5 cm/s Mitral E to MV E' Ratio 12.1 TR Peak Velocity 231.1 cm/s TR Peak Gradient 21.4 mmHg Right Ventricular Systolic Press 25.8 mmHg FINDINGS Left Ventricle Mildly increased left ventricular wall thickness. Left ventricular cavity size normal. Normal left ventricular systolic function with no obvious regional wall motion abnormalities. Left ventricular ejection fraction is estimated at 55-60 %. Right Ventricle Normal right ventricular size and function. Right ventricular systolic pressure within normal limits. Right Atrium Normal right atrial size. Left Atrium Normal left atrial size. Mitral Valve Structurally normal mitral valve. Mild mitral annular calcification. Mild mitral regurgitation. Aortic Valve Trileaflet aortic valve. No aortic stenosis. Mild aortic regurgitation. Tricuspid Valve Structurally normal tricuspid valve. Mild tricuspid regurgitation. Pulmonic Valve Trace pulmonic regurgitation. Pericardium Minimal pericardial effusion (normal variant). Aorta Normal size aortic root and proximal ascending aorta. CONCLUSIONS Normal LV function Mild mitral regurgitation Previewed by: Dr. Robert Scanlon MD (Electronically Signed) Final Date: 19 February 2023 09:59
== END | disposition home or self-care (01) ==
LOC: RADECHMAIN 15:33
PROVIDERS: ATTEND Family Medicine
DX: I35.0 Nonrheumatic aortic (valve) stenosis (principal); R07.9 Chest pain, unspecified; R50.9 Fever, unspecified; R06.09 Other forms of dyspnea
CPT/HCPCS: 93306

== ENCOUNTER → 2023-03-09 | Outpatient (CLI) | payer MEDICARE ==
[2023-03-09 14:12] LABS: African American GFR (CKD) >90 (>60 ml/min/1.73 sqM); Blood Urea Nitrogen 22 mg/dL (7-17); Non-African American GFR(CKD) 89 (>60 ml/min/1.73 sqM)
--- NOTE | 2023-03-09 16:14 | CT ---
EXAMINATION TYPE: V CT DLP: 888.60 mGycm, Automated exposure control for dose reduction was used. DATE OF EXAM: 03/09/2023 3:49 PM COMPARISON: 06/19/2022. CLINICAL INDICATION:Female, 67 years old with history of R16.0 R50.9 R74.02 R79.82 R07.9 R06.09; PHH, f/u liver mass. Technique: Multiple axial images of the chest, abdomen, and pelvis were obtained. Two-dimensional cor onal and sagittal reconstructions were obtained. Contrast used:100 mL of Isovue 370 without and with IV Contrast, Oral contrast used: with Oral Contrast Findings: CHEST: LUNGS/ PLEURA: No focal consolidation, pneumothorax or pleural fusion. No evidence for suspicious nod ule. AIRWAY: Patent and unremarkable. HEART: Size within normal limits. MEDIASTINUM: No gross evidence of adenopathy. VASCULATURE: No aortic aneurysm. MUSCULOSKELETAL: No acute osseous abnormalities. SOFT TISSUES/LYMPH NODES: Unremarkable. LOWER NECK: No significant findings. ABDOMEN: ABDOMEN LIVER: Right hepatic lobe mass which demonstrates circumferential progressive filling in on delayed i maging measuring 3.1 x 2.5 cm which is stable from prior 06/19/2022. Delayed imaging does demonstrate h omogenous enhancement. Additional nonenhancing hepatic cysts in the right hepatic lobe. GALLBLADDER AND BILE DUCTS: Unremarkable. PANCREAS: Unremarkable. SPLEEN: Unremarkable. ADRENAL GLANDS: Unremarkable. KIDNEYS AND URETERS: No evidence of hydronephrosis or renal calculus. The ureters are unremarkable. PELVIS BLADDER: Unremarkable REPRODUCTIVE: Unremarkable. ABDOMEN & PELVIS STOMACH AND BOWEL: No evidence of bowel obstruction. The appendix is normal. PERITONEUM: No evidence of pneumoperitoneum or free fluid. VASCULATURE: No evidence of aortic aneurysm. MUSCULOSKELETAL: No acute osseous abnormalities LYMPH NODES: No gross evidence for lymphadenopathy. SOFT TISSUE/ABDOMINAL WALL: Fat-containing umbilical hernia. IMPRESSION: 1. Stable from 07/06/2022 right hepatic lobe liver lesion which does not have the classic discontinuo us enhancement pattern of a typical hemangioma. Consider additional follow-up in one year to ensure s tability with CT abdomen liver mass protocol. 2. No evidence for lymphadenopathy or suspicious mass.
== END | disposition home or self-care (01) ==
LOC: RADCTMAIN 13:28
PROVIDERS: ATTEND Family Medicine
DX: K76.9 Liver disease, unspecified (principal); R16.0 Hepatomegaly, not elsewhere classified; R50.9 Fever, unspecified; R74.02 Elevation of levels of lactic acid dehydrogenase [LDH]; R79.82 Elevated C-reactive protein (CRP); R07.9 Chest pain, unspecified; R06.09 Other forms of dyspnea
CPT/HCPCS: 82565; 84520; 71270; 74178; 36415; Q9967

== ENCOUNTER → 2023-09-22 | Outpatient (CLI) | payer MEDICARE ==
--- NOTE | 2023-09-23 19:06 | MM ---
Reason for Exam: Screening (asymptomatic). Last screening mammogram was performed 12 month(s) ago. Patient History: Menarche at age 11. Patient has no children. Postmenopausal. Estrogen for 3 years from age 51 until age 54. Risk Values: Monique 5 year model risk: 1.9%. NCI Lifetime model risk: 6.2%. Prior Study Comparison: 06/15/2016 Bilateral Screening Mammogram, [facility]. 08/19/2017 Bilateral Screening Mammogram, [facility]. 08/26/2018 Bilateral Screening Mammogram, [facility]. 09/04/2020 Bilateral Screening Mammogram, [facility]. 09/17/2021 Bilateral Screening Mammogram, [facility]. 09/18/2022 Bilateral MG 3D screening mammo w/cad, [facility]. Tissue Density: The breasts are heterogeneously dense, which may obscure small masses. Findings: Analyzed By CAD. Chronic bilateral nodularity. There is no suspicious group of microcalcifications or new suspicious mass in either breast. Overall Assessment: Benign, BI-RAD 2 Management: Screening Mammogram of both breasts in 1 year. . Patient should continue monthly self-breast exams. A clinical breast exam by your physician is recommended on an annual basis. This exam should not preclude additional follow-up of suspicious palpable abnormalities. Note on Monique scores and lifetime risk: 1. A Monique score greater than 3% is considered moderate risk. If this is the case, consider specialist referral to assess eligibility for a risk reducing agent. 2. If overall lifetime risk for the development of breast cancer is 20% or higher, the patient may qualify for future screening with alternating mammogram and breast MRI. Electronically signed and approved by: Ebony Stinson M.D. Radiologist
== END | disposition home or self-care (01) ==
LOC: RADMAMWWP 09:24
PROVIDERS: ATTEND Family Medicine
DX: Z12.31 Encounter for screening mammogram for malignant neoplasm of breast (principal); Z78.0 Asymptomatic menopausal state
CPT/HCPCS: 77063; 77067

== ENCOUNTER → 2024-03-24 | Outpatient (CLI) | payer MEDICARE ==
--- NOTE | 2024-03-26 12:19 | MR ---
EXAMINATION TYPE: MR liver wo/w con DATE OF EXAM: 03/24/2024 6:27 PM COMPARISON: CT scan abdomen from 03/09/2023 06/19/2022 CLINICAL INDICATION: Female, 68 years old with history of K76.9 LIVER DISEASE; PHH, Hemangioma follow -up from Abnormal CT last year TECHNIQUE: Multiplanar multi-sequence imaging was performed without contrast. Post contrast imaging was performed. Post IV contrast subtraction images were also submitted for review. IV Contrast: 6.5 mL Gadavist FINDINGS: LOWER CHEST: No gross irregularity. ABDOMEN Liver: No evidence for hepatic steatosis or cirrhosis. Scattered high T2 signal lesions throughout th e liver the largest in the right hepatic lobe measuring up to 30 mm. This 30mm lesion demonstrates pe ripheral nodular enhancement which persists on delayed imaging. Additional high T2 signal lesions com patible with cysts present. Gallbladder and Bile ducts: No evidence for ductal dilation, or biliary stricture or evidence of chol edocholithiasis. The gallbladder is within normal limits. Pancreas: No ductal dilation. No evidence for solid mass. Spleen: Normal for size. Adrenal glands: Unremarkable. Kidneys: No evidence for obstructive uropathy. No suspicious renal masses. Stomach and Bowel: No evidence for bowel wall thickening or evidence for obstruction. Retroperitoneum/Peritoneum: No evidence of pneumoperitoneum or free fluid. Vasculature: No aortic aneurysm. Musculoskeletal: The osseous structures appear intact. Lymph Nodes: No gross evidence for lymphadenopathy. Abdominal wall: Unremarkable. IMPRESSION: 1. Hepatic hemangioma measuring 30 mm which is stable back to 06/19/2022 for size. Additional simple a ppearing hepatic cysts. No suspicious masses. 2. No evidence for acute abdominal process. [facility], , 03/26/2024 12:16 PM
== END | disposition home or self-care (01) ==
LOC: RADMRIMAIN 16:19
PROVIDERS: ATTEND Family Medicine
DX: K76.9 Liver disease, unspecified (principal); D18.03 Hemangioma of intra-abdominal structures; K76.89 Other specified diseases of liver
CPT/HCPCS: 74183; A9585